=== PATIENT | male | born 1940 | race Two or more races ===

== ENCOUNTER 2019-05-01 11:34 | Emergency (ER) | payer MEDICARE ==
[2019-05-01 11:53] VITALS: RESP 18; TEMP 97.9
[2019-05-01] MEDS ORDERED: KETOROLAC 30 MG/ML 1 ML VIAL IM STA (12:12)
--- NOTE | 2019-05-01 12:20 | ED ---
General Adult HPI - General Chief complaint: Extremity Injury, Upper Stated complaint: Swollen hand Time Seen by Provider: 05/01/19 12:00 Source: patient Mode of arrival: ambulatory Limitations: no limitations - History of Present Illness Initial comments: Dictation was produced using [employer] dictation software. please excuse any gramma tical, word or spelling errors. Chief Complaint: 78-year-old male with no significant past medical history presents with left hand pain after fall. History of Present Illness: 78-year-old male presents with left hand pain after fall. Yesterday patient was walking down an embankment when he encountered some ice causing him to slip fall backwards. Patient fell on outstretched hand with his left hand. He tried to catch his fall. Patient denies any injury to anything except his left hand. He states he has significant pain to the second and third MCP. States it's really painful. He does also note that there is deformity to his fingers which appear slightly rotated. he reports that he injured his hand the past. Denies any numbness to paresthesias to the left upper extremity. The ROS documented in this emergency department record has been reviewed and confirmed by me. Those systems with pertinent positive or negative responses have been documented in the HPI. All other systems are other negative and/or noncontributory. PHYSICAL EXAM: General Impression: Alert and oriented x3, not in acute distress HEENT: Normocephalic atraumatic, extra-ocular movements intact, pupils equal and reactive to light bilaterally, mucous membranes moist. Cardiovascular: Heart regular rate and rhythm, S1&S2 audible, no murmurs, rubs or gallops Chest: Lungs clear to auscultation bilaterally, no rhonchi, no wheeze, no rales Abdomen: Bowel sounds present, abdomen soft, non-tender, non-distended, no organomegaly Musculoskeletal: Pulses present and equal in all extremities, no peripheral edema Left hand: Swelling to the second and third MCP. Pain with manipulation to the fingers. Patient has decreased correspondence transcriber strength secondary to pain of his second and third digit. Motor: no focal deficits noted Neurological: CN II-XII grossly intact, no focal motor or sensory deficits noted Skin: Intact with no visualized rashes Psych: Normal affect and mood ED course: 78 old male presents with left hand injury after fall. On arrival are within acceptable limits. Patient has no other complaints.hand x-ray is unremarkable. Patient placed and a hand splint immobilizing the first and second digit. Patient prescription for analgesia. Advised follow-up with primary care physician for outpatient follow-up of his hand injury. He is told that if symptoms get worse mini to follow-up with orthopedic hand specialist. - Related Data Previous Rx's Medication Instructions Recorded HYDROcodone/APAP 5-325MG [Agency 1 tab PO Q6HR PRN 3 Days #12 tab 05/01/19 5-325] Allergies Allergy/AdvReac Type Severity Reaction Status Date / Time No Known Allergies Allergy Verified 05/01/19 11:53 Review of Systems ROS Statement: Those systems with pertinent positive or pertinent negative responses have been documented in the HPI. ROS Other: All systems not noted in ROS Statement are negative. Past Medical History Past Medical History: GERD/Reflux, Hyperlipidemia, Hypertension History of Any Multi-Drug Resistant Organisms: None Reported Additional Past Surgical History / Comment(s): rt knee, shoulder, divertilvulits Past Psychological History: No Psychological Hx Reported Smoking Status: Never smoker Past Alcohol Use History: Occasional Past Drug Use History: None Reported General Exam Limitations: no limitations Course Vital Signs 05/01/19 11:49 Temperature 97.9 F Pulse Rate 61 Respiratory 18 Rate Blood Pressure 142/85 O2 Sat by Pulse 96 Oximetry Disposition Clinical Impression: Finger sprain Disposition: HOME SELF-CARE Condition: Good Instructions (If sedation given, give patient instructions): Hand Sprain (ED) Prescriptions: HYDROcodone/APAP 5-325MG [Agency 5-325] 1 tab PO Q6HR PRN 3 Days #12 tab PRN Reason: Severe Pain Is patient prescribed a controlled substance at d/c from ED?: No Referrals: Bassam Montoya DO [Primary Care Provider] - 1-2 days Samuel Chen DO [Medical Doctor] - 1-2 days Time of Disposition: 13:55
--- NOTE | 2019-05-01 13:13 | XR ---
EXAMINATION TYPE: XR hand complete LT , 3 VIEWS DATE OF EXAM ORDERED: 05/01/2019 HISTORY: pain, fall. COMPARISON: None. FINDINGS: The bones are osteopenic, likely on the basis of osteoporosis. There is joint space loss a nd remodeling change in the left third MCP joint. There is degenerative change in the first carpal me tacarpal joint. Deformity of distal ulna likely relating to previous trauma. No acute fracture or dis location is seen. IMPRESSION: 1. NO ACUTE OSSEOUS LESION. 2. EVIDENCE OF OLD TRAUMA. 3. DEGENERATIVE CHANGE.
[2019-05-01 14:20] VITALS: BP 138/78; PULSE 64
== END 2019-05-01 14:15 | disposition home or self-care (01) ==
LOC: EC 11:34
DX: S63.611A Unspecified sprain of left index finger, initial encounter (principal); S63.613A Unspecified sprain of left middle finger, initial encounter; W00.0XXA Fall on same level due to ice and snow, initial encounter; Y93.01 Activity, walking, marching and hiking; Y92.008 Other place in unspecified non-institutional (private) residence as the place of occurrence of the external cause
CPT/HCPCS: 73130; 99283; 96372; J1885

== ENCOUNTER 2021-10-10 11:51 | Day surgery (SDC) | payer MEDICARE ==
[2021-10-09 09:57] VITALS: BMI 24.7
[~2021-10-10 11:51] MED LIST: FAMOTIDINE 20 MG/2 ML VIAL IV PRN; HYDROmorphone 0.5 MG/0.5 ML SYRINGE IVP PRN; LACTATED RINGERS 1,000 ML IV SCH; LIDOCAINE 1% (10MG/ML) FOR IV START INTRADERMA PRN; ONDANSETRON 4 MG/2 ML VIAL IVP ONE
[2021-10-10 12:31] LABS: Glucose,Whole Blood 97 mg/dL (75-99)
[2021-10-10] MEDS ORDERED: hydrALAZINE HCL 20 MG/ML 1 ML VIAL IVP ONE (12:33)
[2021-10-10] MEDS ORDERED: fentaNYL (PF) 50 MCG/ML 2 ML AMP ONE (14:17)
[2021-10-10] MEDS ORDERED: MIDAZOLAM 2 MG/2 ML VIAL ONE (14:17)
[2021-10-10] MEDS ORDERED: ePHEDrine 50 MG/ML 1 ML VIAL ONE (14:17)
[2021-10-10] MEDS ORDERED: PHENYLEPHRINE-0.9% NACL SYG 1,000 MCG/10 ML SYRINGE ONE (14:17)
[2021-10-10] MEDS ORDERED: PROPOFOL 10 MG/ML 20 ML VIAL IV ONE (14:17)
[2021-10-10] MEDS ORDERED: LIDOCAINE 1%-EPI 1:100,000 20 ML VIAL SQ ONE ×2 (14:33)
[2021-10-10] MEDS ORDERED: BACITRACIN ZINC 500 UNIT/GM OINT 28.4 GM TUBE TOPICAL ONE (15:27)
--- NOTE | 2021-10-10 15:44 | P.OP ---
Date of Procedure: 10/10/21 Preoperative Diagnosis: Right ear lesion Postoperative Diagnosis: Same Procedure(s) Performed: Excision right ear lesion 2.1 x 1.5 cm Anesthesia: JACA Surgeon: Carter Anderson Estimated Blood Loss (ml): 2 Pathology: other (Right ear lesion) Condition: stable Disposition: PACU Indications for Procedure: This is an 81-year-old white male who has a slowly enlarging right ear lesion Operative Findings: [place] well-circumscribed nodular skin lesion posterior aspect of the right auricle on frozen section had negative margins and was a basal cell carcinoma. Description of Procedure: The patient was brought in the operative suite and placed in a supine position. Patient underwent induction of general anesthesia with laryngeal mask airway intubation without difficulty. The patient was prepped and draped in usual aseptic fashion. 1% lidocaine with [id number] epinephrine was infused subcutaneously and field block fashion around the lesion as well as in the right postauricular area for potential skin graft reconstruction. The lesion was excised from surrounding tissue grossly entirely down to the perichondrium which was left intact. This was sent for frozen section and the frozen section margins were negative. A full-thickness skin graft was harvested from the right postauricular area in elliptical fashion and was defatted. This defect was closed after hemostasis was gained with inverted interrupted 4-0 Vicryl suture and skin was closed with running locking 4 0 Prolene suture. Bacitracin ointment and sterile dressing was placed. The skin graft was then sutured circumferentially with 5-0 Vicryl suture at the defect and a bolster dressing of Adaptic with bacitracin covering cotton ball was tied down to this. Excellent hemostasis noted. Patient was allowed to emerge from anesthesia having tolerated procedure well was extubated in the operating suite and transferred to postop recovery area in satisfactory condition.
[2021-10-10 15:56] VITALS: RESP 16; TEMP 97.2
[2021-10-10 16:50] VITALS: BP 145/82; PULSE 63
--- NOTE | 2021-10-10 19:40 | OP ---
OPERATIVE REPORT ADDENDUM: PROCEDURES PERFORMED: 1. Excision right ear lesion, 2.1 x 1.5 cm. 2. Full-thickness skin graft reconstruction of right ear defect, 2.2 x 2.3 cm. MMODL / IJN: [id number] /
== END 2021-10-10 17:10 | disposition home or self-care (01) ==
LOC: OR 11:51
PROVIDERS: ATTEND Otolaryngology
DX: L98.9 Disorder of the skin and subcutaneous tissue, unspecified (principal)
CPT/HCPCS: 11444; 15260; 88305; 88331; 88332; J2250; J0360; J0690; J2405; J3010; J2370; J2704

== ENCOUNTER 2022-10-09 11:22 | Day surgery (SDC) | payer MEDICARE ==
[2022-10-07 10:51] VITALS: BMI 24.3
[~2022-10-09 11:22] MED LIST changes: -HYDROmorphone 0.5 MG/0.5 ML SYRINGE IVP PRN; -LIDOCAINE 1% (10MG/ML) FOR IV START INTRADERMA PRN; +fentaNYL (PF) 50 MCG/ML 2 ML AMP IV PRN
[2022-10-09 12:18] LABS: Glucose,Whole Blood 85 mg/dL (70-110)
[2022-10-09] MEDS ORDERED: HYDROCORTISONE SUCCINATE 100 MG/2 ML VIAL IVP ONE (12:32)
[2022-10-09] MEDS ORDERED: PROPOFOL 10 MG/ML 20 ML VIAL IV ONE (13:02)
[2022-10-09] MEDS ORDERED: LIDOCAINE 2% INJ 20 MG/ML (2 ML VIAL) ONE (13:02)
[2022-10-09] MEDS ORDERED: fentaNYL (PF) 50 MCG/ML 2 ML AMP ONE (13:02)
[2022-10-09] MEDS ORDERED: LIDOCAINE 2%-EPI 1:100,000 20 ML VIAL SQ ONE ×2 (13:22)
[2022-10-09] MEDS ORDERED: BACITRACIN ZINC 500 UNIT/GM OINT 28.4 GM TUBE TOPICAL ONE (14:28)
[2022-10-09] MEDS ORDERED: LACTATED RINGERS 1,000 ML IV ONE (14:36)
--- NOTE | 2022-10-09 14:45 | P.OP ---
Date of Procedure: 10/09/22 Preoperative Diagnosis: Right upper nasal lesion Postoperative Diagnosis: Same, basal cell carcinoma Procedure(s) Performed: Excision right upper nasal lesion 1.6 cm x 1.5 cm Local flap reconstruction right upper nasal defect with primary defect 1.8 x 1.8 cm and secondary defect of 2.1 x 2.0 cm- modified glabellar flap Anesthesia: YARELI Surgeon: Carter Anderson Estimated Blood Loss (ml): 3 Pathology: other (Right upper nasal lesion) Condition: stable Disposition: PACU Indications for Procedure: 82-year-old white male with a slowly enlarging right upper nasal lesion Operative Findings: Raised pearly skin lesion right upper nasal dorsum near the medial canthus with ulcerative Centerbasal cell carcinoma on frozen section Description of Procedure: Patient brought in the operative suite and placed in a supine position. Patient underwent induction of general anesthesia with laryngeal mask airway intubation without difficulty. Patient was prepped and draped in usual aseptic fashion. 1% lidocaine with [id number] epinephrine was infused subcutaneously and field block fashion. This was left for work for 7 minutes vasoconstrictive effect. The lesion from the right upper nasal dorsum was excised grossly entirely and se nt for frozen section. Initial frozen section had positive margin laterally and superiorly therefore additional lateral and superior margins were sent for permanent section at the recommendation of the pathologist. Hemostasis was gained with electrocautery. Due to the size and location of the defect a local flap was necessary to close this defect. A modified glabellar flap was raised in the same plane as the defect and then rotated and advanced into position. The flap and secondary defect were then closed with inverted interrupted 40 and 5-0 Vicryl suture skin closed with running locking and simple interrupted 5-0 Prolene suture. Bacitracin ointment was placed. Excellent hemostasis and excellent capillary refill of the entire flap. The patient was then allowed to emerge from general anesthesia having tolerated procedure well was extubated in the operating suite and transferred to the postop recovery area in satisfactory condition.
[2022-10-09 14:50] VITALS: TEMP 97.2
[2022-10-09 15:42] VITALS: RESP 18
[2022-10-09 16:03] VITALS: BP 171/96; PULSE 61
== END 2022-10-09 16:13 | disposition home or self-care (01) ==
LOC: OR 11:22
PROVIDERS: ATTEND Otolaryngology
DX: D48.5 Neoplasm of uncertain behavior of skin (principal); J34.89 Other specified disorders of nose and nasal sinuses; I10 Essential (primary) hypertension; Z79.899 Other long term (current) drug therapy; Z98.890 Other specified postprocedural states; Z85.46 Personal history of malignant neoplasm of prostate
CPT/HCPCS: 14061; 88305; 88331; 88332; J1720; J0690; J2405; J3010; J2704; J2001

== ENCOUNTER 2023-07-16 10:20 | Day surgery (SDC) | payer MEDICARE ==
[2023-07-14 08:58] VITALS: BMI 24.8
[~2023-07-16 10:20] MED LIST changes: -FAMOTIDINE 20 MG/2 ML VIAL IV PRN; +HYDROmorphone 0.5 MG/0.5 ML SYRINGE IVP PRN; -LACTATED RINGERS 1,000 ML IV SCH; -ONDANSETRON 4 MG/2 ML VIAL IVP ONE; -fentaNYL (PF) 50 MCG/ML 2 ML AMP IV PRN
[2023-07-16] MEDS: LACTATED RINGERS 1,000 ML IV SCH (10:47)
[2023-07-16] MEDS: FAMOTIDINE 20 MG/2 ML VIAL IV PRN (11:07)
[2023-07-16] MEDS: ONDANSETRON 4 MG/2 ML VIAL ONE (11:20)
[2023-07-16] MEDS: HYDROCORTISONE SUCCINATE 100 MG/2 ML VIAL IVP ONE (11:21)
[2023-07-16 11:23] LABS: Glucose,Whole Blood 95 mg/dL (70-110)
[2023-07-16] MEDS ORDERED: MIDAZOLAM 2 MG/2 ML VIAL ONE (11:34)
[2023-07-16] MEDS ORDERED: PHENYLEPHRINE 10 MG/ML VIAL ONE (11:34)
[2023-07-16] MEDS ORDERED: ePHEDrine 50 MG/ML 1 ML VIAL ONE (11:34)
[2023-07-16] MEDS ORDERED: LIDOCAINE 1% INJ 10MG/ML (20 ML MDV) ONE (11:34)
[2023-07-16] MEDS ORDERED: GLYCOPYRROLATE 0.2 MG/ML 2 ML VIAL ONE (11:34)
[2023-07-16] MEDS ORDERED: PROPOFOL 10 MG/ML 20 ML VIAL IV ONE (11:34)
[2023-07-16] MEDS ORDERED: fentaNYL (PF) 50 MCG/ML 2 ML AMP ONE (11:34)
[2023-07-16 11:35] VITALS: TEMP 96.8
[2023-07-16] MEDS: LIDOCAINE 2%-EPI 1:100,000 20 ML VIAL SQ ONE (11:58)
[2023-07-16] MEDS: BACITRACIN ZINC 500 UNIT/GM OINT 28.4 GM TUBE TOPICAL ONE (12:40)
--- NOTE | 2023-07-16 13:04 | P.OP ---
Date of Procedure: 07/16/23 Preoperative Diagnosis: Right temporal skin lesion Preauricular skin lesion Postoperative Diagnosis: Same Procedure(s) Performed: Excision right temporal skin lesion 2.8 cm x 2.3 cm Local flap reconstruction right temporal defect with primary defect 2.8 x 2.3 cm with secondary defect at 3.5 x 2.8 cm Excision right preauricular skin lesion with layered closure 3.3 cm Anesthesia: GETA Surgeon: Carter Anderson Estimated Blood Loss (ml): 3 Pathology: other (Roland and right preauricular skin lesions) Condition: stable Disposition: PACU Indications for Procedure: This 83-year-old white male with progressively enlarging right mormonism and right preauricular skin lesions Operative Findings: Approximately 2 x 2.5 cm pink raised nodular skin lesion right mormonism and approximately 1.5 x 1 cm right preauricular skin lesion which is erythematous and raised and roughened Description of Procedure: Patient brought in the operative suite and placed a supine was very patient underwent induction of general anesthesia with laryngeal mask airway intubation without difficulty. The patient was prepped and draped in usual aseptic fashion. 1% lidocaine with 1 1000 epinephrine was infused subcutaneous and field block fashion. This was left to work for 7 minutes vasoconstrictive effect. The right preauricular lesion was excised in elliptical fashion down to the subcutaneous fat layer. The edges of the wound were undermined and h emostasis gained with electrocautery and the wound was closed in the subcutaneous layer with inverted interrupted 5-0 Vicryl suture skin closed with running locking 5-0 Prolene suture. Bacitracin ointment sterile dressing were placed. The right temporal lesion was then excised grossly entirely down to the deep subcutaneous layer. The edges of the wound were undermined hemostasis gained with electrocautery. Due to the size and location this required local flap reconstruction. A rhomboid flap was developed with the base posterior and the rotation from inferior at the same level and size as the defect. This was rotated and advanced into position and sutured with the primary and secondary defect closed with inverted interrupted 40 and 5-0 Vicryl suture skin closed with running locking and simple interrupted 5-0 Prolene suture. Bacitracin ointment and sterile dressing was placed. The patient was then allowed to emerge from general anesthesia having tolerated procedure well was extubated in the operating suite and transferred to postop recovery area in satisfactory condition.
[2023-07-16 14:18] VITALS: BP 115/60; PULSE 75; RESP 18
== END 2023-07-16 14:42 | disposition home or self-care (01) ==
LOC: OR 10:20
PROVIDERS: ATTEND Otolaryngology
DX: C44.311 Basal cell carcinoma of skin of nose (principal); I10 Essential (primary) hypertension; E78.5 Hyperlipidemia, unspecified; K21.9 Gastro-esophageal reflux disease without esophagitis; Z79.899 Other long term (current) drug therapy; Z98.890 Other specified postprocedural states
CPT/HCPCS: 21012; 14040; 88305; J2250; J1720; J0690; J2405; J2001; J3010; J3490; J2704; J2371

== ENCOUNTER 2023-10-27 20:21 | Emergency (ER) | payer MEDICARE ==
[2023-10-27 20:37] VITALS: TEMP 98.4
--- NOTE | 2023-10-27 21:12 | ED ---
General Adult HPI - General Chief complaint: GI Bleed Stated complaint: Weakness,Dizziness,Dark Stool Time Seen by Provider: 10/27/23 20:47 Source: patient Limitations: no limitations - History of Present Illness Initial comments: 83-year-old male presented to the ED with complaints of dark tarry stools. Patient diagnosed with a blood clot last month of his leg. Was started on clopidogrel on 10/10/2023. Reports over the past few days has had dark tarry stools. No abdominal pain. Otherwise no changes in bowel movements. No changes in bladder habits. No chest pain or shortness of breath. No fever or chills. Patient does report he has known history of gastric ulcer. No other complaints at this time. - Related Data Home Medications Medication Instructions Recorded Confirmed Tamsulosin [Flomax] 0.4 mg PO HS 10/09/21 07/16/23 predniSONE 5 mg PO QAM 10/09/21 07/16/23 Verapamil HCl [Verapamil ER] 180 mg PO BID 10/10/21 07/16/23 Atorvastatin [Lipitor] 20 mg PO HS 07/14/23 07/16/23 Finasteride [Proscar] 5 mg PO HS 07/14/23 07/16/23 Olmesartan/Hydrochlorothiazide 1 each PO DAILY 07/14/23 07/16/23 [Olmesartan-Hctz 20-12.5 mg Tab] Allergies Allergy/AdvReac Type Severity Reaction Status Date / Time No Known Allergies Allergy Verified 10/27/23 20:37 Review of Systems ROS Statement: Those systems with pertinent positive or pertinent negative responses have been documented in the HPI. ROS Other: All systems not noted in ROS Statement are negative. Past Medical History Past Medical History: Cancer, GERD/Reflux, Hyperlipidemia, Hypertension, Osteoarthritis (OA), Prostate Disorder Additional Past Medical History / Comment(s): skin CA,hx stomach ulcer w/ bleeding 2021-received blood transfusion, prostate CA-received radiation tx approx 15 yrs ago, yesica wrist swelling-takes daily dose of prednisone, diverticulitis-perforated bowel History of Any Multi-Drug Resistant Organisms: None Reported Past Surgical History: Bowel Resection, Hernia Repair, Orthopedic Surgery Additional Past Surgical History / Comment(s): yesica. knee, shoulder, temporary colostomy and reversal, yesica inguinal hernia, skin CA removal Past Anesthesia/Blood Transfusion Reactions: No Reported Reaction Additional Past Anesthesia/Blood Transfusion Reaction / Comment(s): no problems with prior blood transfusion. Stated "had ruptured a vessel when was intubated (was vomiting blood) and had to have blood transfusion with knee surgery approx 11 yrs ago at [facility]"-had general anesthesia with no problems Past Psychological History: No Psychological Hx Reported Smoking Status: Never smoker Past Alcohol Use History: Occasional Past Drug Use History: None Reported - Past Family History Mother Family Medical History: Cancer Additional Family Medical History / Comment(s): breast General Exam Limitations: no limitations General appearance: alert, in no apparent distress Eye exam: Present: normal appearance Neck exam: Present: normal inspection Respiratory exam: Present: normal lung sounds bilaterally Cardiovascular Exam: Present: regular rate GI/Abdominal exam: Present: soft, normal bowel sounds. Absent: distended, tenderness, guarding, rebound, rigid Rectal exam: Present: other (No gross blood.) Neurological exam: Present: alert, oriented X3 Skin exam: Present: warm, dry Course Vital Signs 10/27/23 10/27/23 10/27/23 20:33 21:43 23:06 Temperature 98.4 F Pulse Rate 72 67 73 Respiratory 22 18 19 Rate Blood Pressure 109/63 115/68 100/67 O2 Sat by Pulse 96 96 98 Oximetry Medical Decision Making - Medical Decision Making Was pt. sent in by a medical professional or institution ([facility], [facility], urgent care, hospital, or group home...) When possible be specific @ -No Did you speak to anyone other than the patient for history (EMS, parent, family, police, friend...)? What history was obtained from this source @ -No Did you review nursing and triage notes (agree or disagree)? Why? @ -I reviewed and agree with nursing and triage notes Were old charts reviewed (outside hosp., previous admission, EMS record, old EKG, old radiological studies, urgent care reports/EKG's, group home records)? Report findings @ -No old charts were reviewed Differential Diagnosis (chest pain, altered mental status, abdominal pain women, abdominal pain men, vaginal bleeding, weakness, fever, dyspnea, syncope, headache, dizziness, GI bleed, back pain, seizure, CVA, palpatations, mental health, musculoskeletal)? @ -Differential GI Bleed: Esophageal varices, aortoenteric fistula, Marycarmen-Lentz, gastritis, peptic ulcer disease, diverticulosis, inflammatory bowel disease, hemorrhoids, fissure, colitis, malignancy, Meckels diverticulum, this is not meant to be an all- inclusive list. EKG interpreted by me (3pts min.). @ -None X-rays interpreted by me (1pt min.). @ -None done CT interpreted by me (1pt min.). @ -None done U/S interpreted by me (1pt. min.). @ -None done What testing was considered but not performed or refused? (CT, X-rays, U/S, labs)? Why? @ -None What meds were considered but not given or refused? Why? @ -None Did you discuss the management of the patient with other professionals (professionals i.e. , PA, TICKET MAKER, lab, RT, psych nurse, social professionals, slab stripper, teacher, assignment officer, case work aide)? Give summary @ -Case discussed with Dr. Lloyd, who at this time advises transfer Case dicsussed with Dr. Biswas, who accepts transfer Was smoking cessation discussed for >3mins.? @ -No Was critical care preformed (if so, how long)? @ -No Were there social determinants of health that impacted care today? How? (Homelessness, low income, unemployed, alcoholism, drug addiction, transportation, low edu. Level, literacy, decrease access to med. care, residential, rehab)? @ -No Was there de-escalation of care discussed even if they declined (Discuss DNR or withdrawal of care, Hospice)? DNR status @ -No What co-morbidities impacted this encounter? (DM, HTN, Smoking, COPD, CAD, Can cer, CVA, ARF, Chemo, Hep., AIDS, mental health diagnosis, sleep apnea, morbid obesity)? @ -None Was patient admitted / discharged? Hospital course, mention meds given and route, prescriptions, significant lab abnormalities, going to OR and other pertinent info. @ -Transfer 83-year-old male with known history of gastric ulcer recently diagnosed with a DVT started on Coumadin at that in the last month presenting to the ED with complaints of melena for the past few days. Laboratory studies reviewed. CBC shows a hemoglobin at 8.4. There is no prior for comparison. Chemistry panel significant for BUN at 79, creatinine 1.01. Occult blood positive. He is currently hemodynamically stable. Patient will be transferred to [facility] for further evaluation. Undiagnosed new problem with uncertain prognosis? @ -No Drug Therapy requiring intensive monitoring for toxicity (Heparin, Nitro, Insulin, Cardizem)? @ -No Were any procedures done? @ -No Diagnosis/symptom? @ -GI bleed, anemia Acute, or Chronic, or Acute on Chronic? @ -Acute Uncomplicated (without systemic symptoms) or Complicated (systemic symptoms)? @ -Complicated Side effects of treatment? @ -No Exacerbation, Progression, or Severe Exacerbation? @ -No Poses a threat to life or bodily function? How? (Chest pain, USA, VT, pneumonia, PE, COPD, DKA, ARF, appy, cholecystitis, CVA, Diverticulitis, Homicidal, Suicidal, threat to staff... and all critical care pts) @ -Unlikely at this time - Lab Data Result diagrams: 10/27/23 21:24 10/27/23 21:24 Lab Results 10/27/23 10/27/23 10/27/23 Range/Units 21:24 21:24 21:24 WBC 7.1 (3.8-10.6) k/uL RBC 3.23 L (4.30-5.90) m/uL Hgb 8.4 L (13.0-17.5) gm/dL Hct 27.0 L (39.0-53.0) % MCV 83.7 (80.0-100.0) fL MCH 26.0 (25.0-35.0) pg MCHC 31.1 (31.0-37.0) g/dL RDW 17.6 H (11.5-15.5) % Plt Count 330 (150-450) k/uL MPV 9.0 Neutrophils % 62 % Lymphocytes % 26 % Monocytes % 7 % Eosinophils % 0 % Basophils % 1 % Neutrophils # 4.4 (1.3-7.7) k/uL Lymphocytes # 1.9 (1.0-4.8) k/uL Monocytes # 0.5 (0-1.0) k/uL Eosinophils # 0.0 (0-0.7) k/uL Basophils # 0.0 (0-0.2) k/uL Anisocytosis Slight PT 12.2 (10.0-12.5) sec INR 1.1 (<1.2) APTT 24.6 (22.0-30.0) sec Sodium (137-145) mmol/L Potassium (3.5-5.1) mmol/L Chloride (98-107) mmol/L Carbon Dioxide (22-30) mmol/L Anion Gap mmol/L BUN (9-20) mg/dL Creatinine (0.66-1.25) mg/dL Est GFR (CKD-EPI)AfAm (>60 ml/min/1.73 sqM) Est GFR (CKD-EPI)NonAf (>60 ml/min/1.73 sqM) Glucose (74-99) mg/dL Plasma Lactic Acid Tomas (0.7-2.0) mmol/L Calcium (8.4-10.2) mg/dL Total Bilirubin (0.2-1.3) mg/dL AST (17-59) U/L ALT (4-49) U/L Alkaline Phosphatase (38-126) U/L Total Protein (6.3-8.2) g/dL Albumin (3.5-5.0) g/dL Stool Occult Blood Positive (Negative) 10/27/23 10/27/23 Range/Units 21:24 21:24 WBC (3.8-10.6) k/uL RBC (4.30-5.90) m/uL Hgb (13.0-17.5) gm/dL Hct (39.0-53.0) % MCV (80.0-100.0) fL MCH (25.0-35.0) pg MCHC (31.0-37.0) g/dL RDW (11.5-15.5) % Plt Count (150-450) k/uL MPV Neutrophils % % Lymphocytes % % Monocytes % % Eosinophils % % Basophils % % Neutrophils # (1.3-7.7) k/uL Lymphocytes # (1.0-4.8) k/uL Monocytes # (0-1.0) k/uL Eosinophils # (0-0.7) k/uL Basophils # (0-0.2) k/uL Anisocytosis PT (10.0-12.5) sec INR (<1.2) APTT (22.0-30.0) sec Sodium 135 L (137-145) mmol/L Potassium 3.8 (3.5-5.1) mmol/L Chloride 105 (98-107) mmol/L Carbon Dioxide 23 (22-30) mmol/L Anion Gap 7 mmol/L BUN 79 H (9-20) mg/dL Creatinine 1.01 (0.66-1.25) mg/dL Est GFR (CKD-EPI)AfAm 78 (>60 ml/min/1.73 sqM) Est GFR (CKD-EPI)NonAf 68 (>60 ml/min/1.73 sqM) Glucose 104 H (74-99) mg/dL Plasma Lactic Acid Tomas 1.2 (0.7-2.0) mmol/L Calcium 8.2 L (8.4-10.2) mg/dL Total Bilirubin 0.7 (0.2-1.3) mg/dL AST 12 L (17-59) U/L ALT 13 (4-49) U/L Alkaline Phosphatase 75 (38-126) U/L Total Protein 5.7 L (6.3-8.2) g/dL Albumin 3.4 L (3.5-5.0) g/dL Stool Occult Blood (Negative) Disposition Clinical Impression: Anemia, GI bleed Disposition: OTHER INSTITUTION NOT DEFINED Condition: Fair Referrals: Bassam Montoya DO [Primary Care Provider] - 1-2 days Time of Disposition: 23:15 - Out of Hospital Transfer - Req. Specs Out of Hospital Transfer - Requested Specifics: Other Emergency Center ([facility])
[2023-10-27] MEDS: SODIUM CHLORIDE 0.9% 1,000 ML IV STA (21:46)
[2023-10-27 22:06] LABS: Anisocytosis Slight; Basophils % (A) 1 %; Eosinophils % (A) 0 %; HGB 8.4 gm/dL (13.0-17.5); Lymphocytes # (A) 1.9 k/uL (1.0-4.8); Lymphocytes % (A) 26 %; MCHC 31.1 g/dL (31.0-37.0); MCV 83.7 fL (80.0-100.0); Monocytes # (A) 0.5 k/uL (0-1.0); Monocytes % (A) 7 %; Neutrophils # (A) 4.4 k/uL (1.3-7.7); Neutrophils % (A) 62 %; Platelet Count 330 k/uL (150-450); RBC 3.23 m/uL (4.30-5.90); RDW 17.6 % (11.5-15.5); WBC 7.1 k/uL (3.8-10.6)
[2023-10-27 22:19] LABS: ALT 13 U/L (4-49); AST 12 U/L (17-59); African American GFR (CKD) 78 (>60 ml/min/1.73 sqM); Albumin 3.4 g/dL (3.5-5.0); Alkaline Phosphatase 75 U/L (38-126); Anion Gap 7 mmol/L; Blood Urea Nitrogen 79 mg/dL (9-20); Calcium 8.2 mg/dL (8.4-10.2); Carbon Dioxide 23 mmol/L (22-30); Chloride 105 mmol/L (98-107); Glucose 104 mg/dL (74-99); Non-African American GFR(CKD) 68 (>60 ml/min/1.73 sqM); Potassium 3.8 mmol/L (3.5-5.1); Sodium 135 mmol/L (137-145); Total Bilirubin 0.7 mg/dL (0.2-1.3); Total Protein 5.7 g/dL (6.3-8.2)
[2023-10-27 22:21] LABS: INR 1.1 (<1.2); Partial Thromboplastin Time 24.6 sec (22.0-30.0); Prothrombin Time 12.2 sec (10.0-12.5)
[2023-10-28 00:41] VITALS: BP 100/51; PULSE 75; RESP 18
== END 2023-10-28 00:42 | disposition other institution (70) ==
LOC: EC 20:21
DX: D64.9 Anemia, unspecified (principal); K92.2 Gastrointestinal hemorrhage, unspecified
CPT/HCPCS: 36415; 80053; 82272; 83605; 85025; 85610; 85730; 96360; 99285

== ENCOUNTER 2023-12-15 13:15 | Inpatient (IN) | payer MEDICARE ==
--- NOTE | 2023-12-15 13:46 | ED ---
General Adult HPI - General Source: patient, family, RN notes reviewed Mode of arrival: ambulatory Limitations: no limitations <Renetta Cazares - Last Filed: 12/15/23 13:44> <Angie Acevedo - Last Filed: 12/15/23 20:02> <Lexa Chau - Last Filed: 12/15/23 20:22> - General Chief complaint: Chest Pain Stated complaint: L Shoulder/neck pain Time Seen by Provider: 12/15/23 13:44 - History of Present Illness Initial comments: Quick Note: This is an 83 year old male who presents to the emergency department for pain in his neck and left shoulder. States that last night when he went to bed he had stiffness in his neck and left shoulder. Pain was worse with movement. Denies any injuries. Pain has persisted into today. He is now developing pain over the left rib cage. Additionally, family states that over t he last couple of weeks he has been very weak and fatigued. (Renetta Cazares) 83-year-old male presenting to the ED for left neck pain since last night. Patient states when he was going to bed last night he was having stiffness in his neck and left shoulder that is worse with movement. He states he had trouble sleeping last night due to the pain. Denies trauma or injury. Family is present upon evaluation in states they are concerned because over the past couple weeks he has been very fatigued and weak. (Angie Acevedo) - Related Data Home Medications Medication Instructions Recorded Confirmed Tamsulosin [Flomax] 0.4 mg PO BID 10/09/21 12/15/23 Atorvastatin [Lipitor] 20 mg PO DAILY 07/14/23 12/15/23 Finasteride [Proscar] 5 mg PO DAILY 07/14/23 12/15/23 Olmesartan/Hydrochlorothiazide 1 tab PO DAILY 07/14/23 12/15/23 [Olmesartan-Hctz 20-12.5 mg Tab] Ascorbic Acid [Vitamin C] 500 mg PO HS 12/15/23 12/15/23 Ferrous Sulfate [Feosol] 325 mg PO HS 12/15/23 12/15/23 Omeprazole 20 mg PO DAILY 12/15/23 12/15/23 Allergies Allergy/AdvReac Type Severity Reaction Status Date / Time No Known Allergies Allergy Verified 12/15/23 14:38 Review of Systems ROS Other: All systems not noted in ROS Statement are negative. <Renetta Cazares - Last Filed: 12/15/23 13:44> ROS Other: All systems not noted in ROS Statement are negative. <AcevedoAngie - Last Filed: 12/15/23 20:02> ROS Other: All systems not noted in ROS Statement are negative. <PipertriciaLexa hernandez - Last Filed: 12/15/23 20:22> ROS Statement: Those systems with pertinent positive or pertinent negative responses have been documented in the HPI. Past Medical History Past Medical History: Cancer, GERD/Reflux, Hyperlipidemia, Hypertension, Osteoarthritis (OA), Prostate Disorder Additional Past Medical History / Comment(s): skin CA,hx stomach ulcer w/ bleeding 2021-received blood transfusion, prostate CA-received radiation tx approx 15 yrs ago, yesica wrist swelling-takes daily dose of prednisone, diverticulitis-perforated bowel History of Any Multi-Drug Resistant Organisms: None Reported Past Surgical History: Bowel Resection, Hernia Repair, Orthopedic Surgery Additional Past Surgical History / Comment(s): yesica. knee, shoulder, temporary colostomy and reversal, yesica inguinal hernia, skin CA removal Past Anesthesia/Blood Transfusion Reactions: No Reported Reaction Additional Past Anesthesia/Blood Transfusion Reaction / Comment(s): no problems with prior blood transfusion. Stated "had ruptured a vessel when was intubated (was vomiting blood) and had to have blood transfusion with knee surgery approx 11 yrs ago at [facility]"-had general anesthesia with no problems Past Psychological History: No Psychological Hx Reported Smoking Status: Never smoker Past Alcohol Use History: Occasional Past Drug Use History: None Reported - Past Family History Mother Family Medical History: Cancer Additional Family Medical History / Comment(s): breast <Renetta Cazares - Last Filed: 12/15/23 13:44> General Exam Limitations: no limitations <Renetta Cazares - Last Filed: 12/15/23 13:44> General appearance: alert, in no apparent distress Head exam: Present: atraumatic, normocephalic, normal inspection Eye exam: Present: normal appearance, PERRL, EOMI. Absent: scleral icterus, conjunctival injection, periorbital swelling ENT exam: Present: normal exam, mucous membranes moist Neck exam: Present: normal inspection. Absent: tenderness, meningismus, lymphadenopathy Respiratory exam: Present: normal lung sounds bilaterally. Absent: respiratory distress, wheezes, rales, rhonchi, stridor Cardiovascular Exam: Present: regular rate, normal rhythm, normal heart sounds. Absent: systolic murmur, diastolic murmur, rubs, gallop, clicks GI/Abdominal exam: Present: soft, normal bowel sounds. Absent: distended, tenderness, guarding, rebound, rigid Extremities exam: Present: normal inspection, full ROM, normal capillary refill. Absent: tenderness, pedal edema, joint swelling, calf tenderness Neurological exam: Present: alert, oriented X3, CN II-XII intact Psychiatric exam: Present: normal affect, normal mood Skin exam: Present: warm, dry, intact, normal color. Absent: rash <Angie Acevedo - Last Filed: 12/15/23 20:02> - General Exam Comments Initial Comments: Visual Physical Exam Vital signs reviewed General: Well-appearing, nontoxic, no acute distress. Head: Normocephalic, atraumatic Eyes: PERRLA, EOMI ENT: Airway patent Chest: Nonlabored breathing Skin: No visual rash, normal skin tone Neuro: Alert and oriented 3 Musculoskeletal: No gross abnormalities (VogleyMark AnthonyRenetta) Course <Lexa Chau - Last Filed: 12/15/23 20:22> Vital Signs 12/15/23 12/15/23 12/15/23 13:31 14:35 15:49 Temperature 98.6 F 100.1 F H Pulse Rate 82 96 103 H Respiratory 18 16 16 Rate Blood Pressure 142/92 138/98 146/97 O2 Sat by Pulse 94 L 94 L 94 L Oximetry 12/15/23 12/15/23 18:09 19:39 Temperature 99.0 F Pulse Rate 96 Respiratory 16 Rate Blood Pressure 100/69 O2 Sat by Pulse 93 L Oximetry - Reevaluation(s) Reevaluation #1: 12/15/23 20:21 Case, results and ED management were discussed with Dr. Farley. He accepts hospital admission. He has no further recommendations at this time. (Lexa Chau) EKG Findings - EKG Results: EKG: interpreted by ERMD (EKG reveals normal sinus rhythm with widened QRS complexes. Ventricular rate 96 bpm, NH interval 193, QRS duration 114, QT/QTc 372/426) <Angie Acevedo - Last Filed: 12/15/23 20:02> Medical Decision Making <Renetta Cazares - Last Filed: 12/15/23 13:44> - Lab Data Result diagrams: 12/15/23 14:20 12/15/23 14:20 <Angie Acevedo - Last Filed: 12/15/23 20:02> - Lab Data Result diagrams: 12/15/23 14:20 12/15/23 14:20 <Lexa Chau - Last Filed: 12/15/23 20:22> - Medical Decision Making I performed the QuickNote portion of this chart. Signed Renetta Cazares PA-C. (Renetta Cazares) Was pt. sent in by a medical professional or institution ([facility], ENGLISH DIVISION CHAIR, urgent care, hospital, or intermediate...) When possible be specific @ -No Did you speak to anyone other than the patient for history (EMS, parent, family, police, friend...)? What history was obtained from this source @ -Patient's family members supplemented history Did you review nursing and triage notes (agree or disagree)? Why? @ -I reviewed and agree with nursing and triage notes Were old charts reviewed (outside hosp., previous admission, EMS record, old EKG, old radiological studies, urgent care reports/EKG's, intermediate records)? Report findings @ -No old charts were reviewed Differential Diagnosis (chest pain, altered mental status, abdominal pain women, abdominal pain men, vaginal bleeding, weakness, fever, dyspnea, syncope, headache, dizziness, GI bleed, back pain, seizure, CVA, palpatations, mental health, musculoskeletal)? @ -Differential Fever: Pneumonia, viral URI, endocarditis, myocarditis, pericarditis, otitis, sinusitis, peritonsillar Abscess, retropharyngeal Abscess, epiglottitis, peritonitis, appendicitis, Alondra cystitis, diverticulitis, hepatitis, colitis, UTI, PID, TOA, pyelonephritis, prostatitis, epididymitis, meningitis, encephalitis, pulmonary embolism, CVA, thyroid storm, pancreatitis, adrenal crisis, cavernous sinus thrombosis, this is not meant to be an all-inclusive list. EKG interpreted by me (3pts min.). @ -As above X-rays interpreted by me (1pt min.). @ -Chest x-ray reveals small bilateral pleural effusions and mild pulmonary congestion. C-spine x-ray reveals no acute fracture or dislocation, there is moderate degenerative disc disease. Left shoulder x-ray revealed no acute process, there is mild osteoarthritis, and high riding humerus likely rotator cuff injury. CT interpreted by me (1pt min.). @ -None done U/S interpreted by me (1pt. min.). @ -None done What testing was considered but not performed or refused? (CT, X-rays, U/S, labs)? Why? @ -None What meds were considered but not given or refused? Why? @ -None Did you discuss the management of the patient with other professionals (professionals i.e. , PA, ENGLISH DIVISION CHAIR, lab, RT, psych nurse, social welfare clerk, panel wirer, teacher, commanding officer garage, caseworker protective services)? Give summary @ -No Was smoking cessation discussed for >3mins.? @ -No Was critical care preformed (if so, how long)? @ -No Were there social determinants of health that impacted care today? How? (Homelessness, low income, unemployed, alcoholism, drug addiction, transportation, low edu. Level, literacy, decrease access to med. care, detention, rehab)? @ -No Was there de-escalation of care discussed even if they declined (Discuss DNR or withdrawal of care, Hospice)? DNR status @ -No What co-morbidities impacted this encounter? (DM, HTN, Smoking, COPD, CAD, Cancer, CVA, ARF, Chemo, Hep., AIDS, mental health diagnosis, sleep apnea, morbid obesity)? @ -none Was patient admitted / discharged? Hospital course, mention meds given and route, prescriptions, significant lab abnormalities, going to OR and other pertinent info. @ -Patient was admitted. Patient was seen and evaluated for left-sided neck stiffness as well as fatigue and cough for a couple of weeks. Temperature is 100.1, heart rate is 96, satting 94 on room air. Blood pressure is 100/69. Physical examination is unremarkable. Lab work including CBC, CMP, troponin, BNP, lactic is remarkable for troponin of 0.021, BNP 880. Lactic acid is negative. Urine is unremarkable. Flu, COVID, RSV is negative. Chest x-ray reveals small bilateral pleural effusions and mild pulmonary congestion. C- spine and left shoulder x-ray revealed no acute process. Blood cultures were taken and patient was started on IV Rocephin and azithromycin. Patient was admitted to [facility] for likely pneumonia. Case was discussed with my ED attending Dr. Chau. Undiagnosed new problem with uncertain prognosis? @ -No Drug Therapy requiring intensive monitoring for toxicity (Heparin, Nitro, Insulin, Cardizem)? @ -No Were any procedures done? @ -No Diagnosis/symptom? @ -Pneumonia Acute, or Chronic, or Acute on Chronic? @ -Acute Uncomplicated (without systemic symptoms) or Complicated (systemic symptoms)? @ -Complicated Side effects of treatment? @ -No Exacerbation, Progression, or Severe Exacerbation? @ -No Poses a threat to life or bodily function? How? (Chest pain, [place], [place], pneumonia, PE, COPD, DKA, ARF, appy, cholecystitis, CVA, Diverticulitis, Homicidal, Suicidal, threat to staff... and all critical care pts) @ -Yes (Angie Acevedo) - Lab Data Lab Results 12/15/23 12/15/23 12/15/23 Range/Units 14:20 14:20 14:20 WBC 10.5 (3.8-10.6) k/uL RBC 4.26 L (4.30-5.90) m/uL Hgb 11.6 L D (13.0-17.5) gm/dL Hct 35.3 L (39.0-53.0) % MCV 82.9 (80.0-100.0) fL MCH 27.3 (25.0-35.0) pg MCHC 32.9 (31.0-37.0) g/dL RDW 17.3 H (11.5-15.5) % Plt Count 457 H (150-450) k/uL MPV 8.2 Neutrophils % 59 % Lymphocytes % 21 % Monocytes % 17 % Eosinophils % 0 % Basophils % 0 % Neutrophils # 6.1 (1.3-7.7) k/uL Lymphocytes # 2.2 (1.0-4.8) k/uL Monocytes # 1.7 H (0-1.0) k/uL Eosinophils # 0.0 (0-0.7) k/uL Basophils # 0.0 (0-0.2) k/uL Hypochromasia Slight Anisocytosis Slight PT 12.0 (10.0-12.5) sec INR 1.1 (<1.2) APTT 29.1 (22.0-30.0) sec Sodium 134 L (137-145) mmol/L Potassium 3.7 (3.5-5.1) mmol/L Chloride 99 (98-107) mmol/L Carbon Dioxide 27 (22-30) mmol/L Anion Gap 8 mmol/L BUN 12 (9-20) mg/dL Creatinine 0.77 (0.66-1.25) mg/dL Est GFR (CKD-EPI)AfAm >90 (>60 ml/min/1.73 sqM) Est GFR (CKD-EPI)NonAf 83 (>60 ml/min/1.73 sqM) Glucose 110 H (74-99) mg/dL Plasma Lactic Acid Tomas (0.7-2.0) mmol/L Calcium 8.8 (8.4-10.2) mg/dL Magnesium 1.7 (1.6-2.3) mg/dL Total Bilirubin 0.9 (0.2-1.3) mg/dL AST 21 (17-59) U/L ALT 22 (4-49) U/L Alkaline Phosphatase 120 (38-126) U/L Troponin I (0.000-0.034) ng/mL NT-Pro-B Natriuret Pep 880 pg/mL Total Protein 6.4 (6.3-8.2) g/dL Albumin 3.6 (3.5-5.0) g/dL Lipase 123 (23-300) U/L Urine Color Urine Appearance (Clear) Urine pH (5.0-8.0) Ur Specific [place] (1.001-1.035) Urine Protein (Negative) Urine Glucose (UA) (Negative) Urine Ketones (Negative) Urine Blood (Negative) Urine Nitrite (Negative) Urine Bilirubin (Negative) Urine Urobilinogen (<2.0) mg/dL Ur Leukocyte Esterase (Negative) Influenza Type A (PCR) (Not Detectd) Influenza Type B (PCR) (Not Detectd) RSV (PCR) (Not Detectd) SARS-CoV-2 (PCR) (Not Detectd) 12/15/23 12/15/23 12/15/23 Range/Units 14:20 18:21 18:21 WBC (3.8-10.6) k/uL RBC (4.30-5.90) m/uL Hgb (13.0-17.5) gm/dL Hct (39.0-53.0) % MCV (80.0-100.0) fL MCH (25.0-35.0) pg MCHC (31.0-37.0) g/dL RDW (11.5-15.5) % Plt Count (150-450) k/uL MPV Neutrophils % % Lymphocytes % % Monocytes % % Eosinophils % % Basophils % % Neutrophils # (1.3-7.7) k/uL Lymphocytes # (1.0-4.8) k/uL Monocytes # (0-1.0) k/uL Eosinophils # (0-0.7) k/uL Basophils # (0-0.2) k/uL Hypochromasia Anisocytosis PT (10.0-12.5) sec INR (<1.2) APTT (22.0-30.0) sec Sodium (137-145) mmol/L Potassium (3.5-5.1) mmol/L Chloride (98-107) mmol/L Carbon Dioxide (22-30) mmol/L Anion Gap mmol/L BUN (9-20) mg/dL Creatinine (0.66-1.25) mg/dL Est GFR (CKD-EPI)AfAm (>60 ml/min/1.73 sqM) Est GFR (CKD-EPI)NonAf (>60 ml/min/1.73 sqM) Glucose (74-99) mg/dL Plasma Lactic Acid Tomas 0.9 (0.7-2.0) mmol/L Calcium (8.4-10.2) mg/dL Magnesium (1.6-2.3) mg/dL Total Bilirubin (0.2-1.3) mg/dL AST (17-59) U/L ALT (4-49) U/L Alkaline Phosphatase (38-126) U/L Troponin I 0.021 (0.000-0.034) ng/mL NT-Pro-B Natriuret Pep pg/mL Total Protein (6.3-8.2) g/dL Albumin (3.5-5.0) g/dL Lipase (23-300) U/L Urine Color Urine Appearance (Clear) Urine pH (5.0-8.0) Ur Specific [place] (1.001-1.035) Urine Protein (Negative) Urine Glucose (UA) (Negative) Urine Ketones (Negative) Urine Blood (Negative) Urine Nitrite (Negative) Urine Bilirubin (Negative) Urine Urobilinogen (<2.0) mg/dL Ur Leukocyte Esterase (Negative) Influenza Type A (PCR) Not Detected (Not Detectd) Influenza Type B (PCR) Not Detected (Not Detectd) RSV (PCR) Not Detected (Not Detectd) SARS-CoV-2 (PCR) Not Detected (Not Detectd) 12/15/23 Range/Units 18:21 WBC (3.8-10.6) k/uL RBC (4.30-5.90) m/uL Hgb (13.0-17.5) gm/dL Hct (39.0-53.0) % MCV (80.0-100.0) fL MCH (25.0-35.0) pg MCHC (31.0-37.0) g/dL RDW (11.5-15.5) % Plt Count (150-450) k/uL MPV Neutrophils % % Lymphocytes % % Monocytes % % Eosinophils % % Basophils % % Neutrophils # (1.3-7.7) k/uL Lymphocytes # (1.0-4.8) k/uL Monocytes # (0-1.0) k/uL Eosinophils # (0-0.7) k/uL Basophils # (0-0.2) k/uL Hypochromasia Anisocytosis PT (10.0-12.5) sec INR (<1.2) APTT (22.0-30.0) sec Sodium (137-145) mmol/L Potassium (3.5-5.1) mmol/L Chloride (98-107) mmol/L Carbon Dioxide (22-30) mmol/L Anion Gap mmol/L BUN (9-20) mg/dL Creatinine (0.66-1.25) mg/dL Est GFR (CKD-EPI)AfAm (>60 ml/min/1.73 sqM) Est GFR (CKD-EPI)NonAf (>60 ml/min/1.73 sqM) Glucose (74-99) mg/dL Plasma Lactic Acid Tomas (0.7-2.0) mmol/L Calcium (8.4-10.2) mg/dL Magnesium (1.6-2.3) mg/dL Total Bilirubin (0.2-1.3) mg/dL AST (17-59) U/L ALT (4-49) U/L Alkaline Phosphatase (38-126) U/L Troponin I (0.000-0.034) ng/mL NT-Pro-B Natriuret Pep pg/mL Total Protein (6.3-8.2) g/dL Albumin (3.5-5.0) g/dL Lipase (23-300) U/L Urine Color Colorless Urine Appearance Clear (Clear) Urine pH 7.0 (5.0-8.0) Ur Specific [place] 1.010 (1.001-1.035) Urine Protein Negative (Negative) Urine Glucose (UA) Negative (Negative) Urine Ketones Negative (Negative) Urine Blood Negative (Negative) Urine Nitrite Negative (Negative) Urine Bilirubin Negative (Negative) Urine Urobilinogen <2.0 (<2.0) mg/dL Ur Leukocyte Esterase Negative (Negative) Influenza Type A (PCR) (Not Detectd) Influenza Type B (PCR) (Not Detectd) RSV (PCR) (Not Detectd) SARS-CoV-2 (PCR) (Not Detectd) Disposition <Renetta Cazares - Last Filed: 12/15/23 13:44> Time of Disposition: 19:56 <Angie Acevedo - Last Filed: 12/15/23 20:02> Is patient prescribed a controlled substance at d/c from ED?: No Time of Disposition: 20:22 <Lexa Chau - Last Filed: 12/15/23 20:22> Clinical Impression: Pneumonia Disposition: ADMITTED IP TO THIS HOSP Condition: Stable Referrals: Zina Call DO [Primary Care Provider] - 1-2 days
[2023-12-15 14:37] LABS: Anisocytosis Slight; Basophils % (A) 0 %; Eosinophils % (A) 0 %; HCT 35.3 % (39.0-53.0); Hypochromasia Slight; Lymphocytes # (A) 2.2 k/uL (1.0-4.8); Lymphocytes % (A) 21 %; MCH 27.3 pg (25.0-35.0); MCHC 32.9 g/dL (31.0-37.0); MCV 82.9 fL (80.0-100.0); Mean Platelet Volume 8.2; Monocytes # (A) 1.7 k/uL (0-1.0); Monocytes % (A) 17 %; Neutrophils # (A) 6.1 k/uL (1.3-7.7); Neutrophils % (A) 59 %; Platelet Count 457 k/uL (150-450); RBC 4.26 m/uL (4.30-5.90); RDW 17.3 % (11.5-15.5); WBC 10.5 k/uL (3.8-10.6)
[2023-12-15 14:40] LABS: INR 1.1 (<1.2); Partial Thromboplastin Time 29.1 sec (22.0-30.0)
[2023-12-15 14:48] LABS: HGB 11.6 gm/dL (13.0-17.5)
--- NOTE | 2023-12-15 15:36 | XR ---
EXAMINATION TYPE: XR chest 2V DATE OF EXAM: 12/15/2023 COMPARISON: NONE HISTORY: Chest pain TECHNIQUE: Frontal and lateral views of the chest are obtained. FINDINGS: There are small bilateral pleural effusions, mild pulmonary vascular congestion and interstitial margot a. The heart size is prominent. There is no pneumothorax. No airspace consolidation. There are chronic rotator cuff tears left greater than right. IMPRESSION: Findings most consistent with [id number] CHF
--- NOTE | 2023-12-15 15:37 | XR ---
EXAMINATION TYPE: XR shoulder complete LT DATE OF EXAM: 12/15/2023 2:56 PM CLINICAL INDICATION:Male, 83 years old with history of Pain; [facility] COMPARISON: None TECHNIQUE: XR shoulder complete LT; examined in AP, internally rotated and scapular Y projections. FINDINGS: No evidence of acute osseous pathology, joint dislocation, or soft tissue swelling. The remaining po rtions of the visualized chest are unremarkable. Degeneration changes of the acromion, distal clavic le with osteophyte formation. There is osteophyte formation of the glenoid and humeral head. There is joint space narrowing of glenohumeral joint. The humeral head is high riding with acetabularization of the acromion. IMPRESSION: 1. No acute osseous pathology. 2. Moderate shoulder osteoarthrosis. 3. High riding humerus towards the acromion suspicious for underlying rotator cuff tear. Correlate th MRI.
--- NOTE | 2023-12-15 15:38 | XR ---
EXAMINATION TYPE: XR cervical spine comp DATE OF EXAM: 12/15/2023 2:56 PM CLINICAL INDICATION:Male, 83 years old with history of Pain; COMPARISON: None TECHNIQUE: The cervical spine was imaged in frontal, lateral, odontoid and bilateral oblique. FINDINGS: The osseous structures show grade 2 anterolisthesis of C5 and C6 Alignment without evidence of an acu te fracture. There are osteophytes noted throughout the cervical spine on the anterior and lateral as pects of the vertebral bodies. The intervertebral disk spaces are narrowed at multiple levels. Pedicl es are intact. Soft tissues are within normal limits. The odontoid appears intact. IMPRESSION: 1. No fracture or dislocation. 2. Moderate degenerative disc disease changes of the cervical spine. 3. 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
[2023-12-15] MEDS: MORPHINE SULFATE 2 MG/ML SYRINGE IVP ONE (15:39)
[2023-12-15] MEDS: ONDANSETRON 4 MG/2 ML VIAL IVP STA (15:57)
[2023-12-15 16:58] LABS: ALT 22 U/L (4-49); AST 21 U/L (17-59); African American GFR (CKD) >90 (>60 ml/min/1.73 sqM); Albumin 3.6 g/dL (3.5-5.0); Alkaline Phosphatase 120 U/L (38-126); Anion Gap 8 mmol/L; Blood Urea Nitrogen 12 mg/dL (9-20); Calcium 8.8 mg/dL (8.4-10.2); Carbon Dioxide 27 mmol/L (22-30); Chloride 99 mmol/L (98-107); Glucose 110 mg/dL (74-99); Lipase 123 U/L (23-300); Magnesium 1.7 mg/dL (1.6-2.3); Non-African American GFR(CKD) 83 (>60 ml/min/1.73 sqM); Potassium 3.7 mmol/L (3.5-5.1); Sodium 134 mmol/L (137-145); Total Bilirubin 0.9 mg/dL (0.2-1.3); Total Protein 6.4 g/dL (6.3-8.2)
[2023-12-15 17:03] LABS: NT-Pro-B-Type Natriuretic Pept 880 pg/mL
[2023-12-15] MEDS: ACETAMINOPHEN TAB 500 MG TAB PO STA (18:01)
[2023-12-15] MEDS: ORPHENADRINE 30 MG/ML 2 ML VIAL IVP STA (18:02)
[2023-12-15] MEDS: MORPHINE SULFATE 2 MG/ML SYRINGE IVP STA (18:06)
[2023-12-15 18:52] LABS: Appearance,Urine Clear (Clear); Bilirubin,Urine Negative (Negative); Blood,Urine Negative (Negative); Color,Urine Colorless; Glucose,Urine (UA) Negative (Negative); Ketones,Urine Negative (Negative); Leukocyte Esterase,Urine Negative (Negative); Nitrite,Urine Negative (Negative); Protein,Urine Negative (Negative); Urobilinogen,Urine <2.0 mg/dL (<2.0)
[2023-12-15] MEDS ORDERED: NALOXONE 0.4 MG/ML 1 ML VIAL IV PRN (20:29)
[2023-12-15] MEDS: AZITHROMYCIN 500 MG in SODIUM CHLORIDE 0.9% 250 ML IVPB STA (21:30)
[2023-12-15] MEDS: HYDROcodone/APAP 5-325MG 1 EACH TAB PO STA (22:09)
[2023-12-16] MEDS: HYDROcodone/APAP 5-325MG 1 EACH TAB PO PRN (02:51)
[2023-12-16 09:01] LABS: ALT 20 U/L (10-49); AST 17 U/L (14-35); Albumin 3.4 g/dL (3.8-4.9); Albumin/Globulin Ratio 1.42 Ratio (1.60-3.17); Alkaline Phosphatase 107 U/L (41-126); BUN/Creat Ratio 11.64 Ratio (12.00-20.00); Blood Urea Nitrogen 12.8 mg/dL (9.0-27.0); Calcium 8.3 mg/dL (8.7-10.3); Carbon Dioxide 25.1 mmol/L (21.6-31.8); Chloride 97 mmol/L (96-109); Globulin 2.4 g/dL (1.6-3.3); Glucose 108 mg/dL (70-110); Potassium 3.7 mmol/L (3.5-5.5); Sodium 134 mmol/L (135-145); Total Bilirubin 0.6 mg/dL (0.3-1.2); Total Protein 5.8 g/dL (6.2-8.2)
[2023-12-16 09:02] LABS: HGB 10.2 g/dL (13.0-17.0); MCH 26.2 pg (27.0-32.0); MCHC 30.9 g/dL (32.0-37.0); MCV 84.6 FL (80.0-97.0); Mean Platelet Volume 10.3 FL (9.5-12.2); NRBC Per 100 WBC 0 X 10*3/uL (0.00-0.01); Platelet Count 369 X 10*3/uL (140-440); RDW 18.1 % (11.5-14.5); WBC 9.43 X 10*3/uL (4.50-10.00)
[2023-12-16 09:59] LABS: Basophils # (M) 0.19 X 10*3/uL (0.00-0.10); Eosinophils # (M) 0 X 10*3/uL (0.04-0.35); Monocytes # (M) 1.51 X 10*3/uL (0.20-1.00); Neutrophils # (M) 6.04 X 10*3/uL (1.80-7.70); Neutrophils % (M) 64 %; RBC Morphology Normal (Normal)
[2023-12-16] MEDS ORDERED: IOPAMIDOL CONTRAST (ORAL USE) VIAL PO PRN ×2 (12:22→13:17)
[2023-12-16] MEDS: HYDROmorphone 0.5 MG/0.5 ML SYRINGE IVP PRN (12:38)
[2023-12-16] MEDS: PIPERACILLIN-TAZOBACTAM 3.375 GM in SODIUM CHLORIDE 0.9% 100 ML IVPB SCH (12:45)
[2023-12-16] MEDS: THIAMINE 100 MG TAB PO SCH (13:59)
--- NOTE | 2023-12-16 15:35 | P.CNPUL ---
History of Present Illness Consult date: 12/16/23 Requesting physician: Randal Farley Reason for consult: abnormal CXR/CT Chief complaint: Headache, stiff neck, shoulder pain History of present illness: Is an 83-year-old male patient with a known history of hypertension, hyperlipidemia, gastroesophageal reflux disease, BPH. He was brought into the emergency room today with a 1 day history of stiff neck, shoulder pain and weakness. His family states he has been getting progressively weak over the past 2 weeks. Chest x-ray shows fluid volume overload consistent with mild to moderate CHF. Mild bilateral pleural effusions. Left shoulder x-ray reveals no acute osseous pathology. Possible rotator cuff tear. Moderate shoulder osteoarthrosis. X-ray of the cervical neck revealed no fracture or dislocation. There is moderate degenerative disc disease. White count 9.43. Hemoglobin 10.2. Platelets 369. D-dimer 2.0. Sodium 134. Potassium 3.7. Bicarb 25. BUN 13. Creatinine 1.1. Glucose 108. Troponin 0.038. 0.031. Urinalysis is clean. Viral screen negative. He is seen in consultation in the emergency department. Family is at the bedside and they are stating he has now complaining of a headache is acting differently than earlier today. He denies any worsening shortness of breath, cough or congestion. Is maintaining O2 saturations in the 90s on 2 L/min per nasal cannula. He is afebrile. Hemodynamically stable. He was given ceftriaxone and azithromycin. Currently on Zosyn. Review of Systems REVIEW OF SYSTEMS: CONSTITUTIONAL: Positive for generalized weakness. Denies any recent significant weight loss or weight gain. EYES: Denies change in vision. EARS, NOSE, MOUTH, THROAT: Denies headaches, denies sore throat. CARDIOVASCULAR: Denies chest pain, palpitations or syncopal episodes. RESPIRATORY: Positive for shortness of breath, no cough, congestion or hemoptysis. GASTROINTESTINAL: Denies change in appetite, denies abdominal pain GENITOURINARY: Denies hematuria, denies infections. MUSKULOSKELETAL: Positive for neck and back pain. Denies swelling. INTEGUMENTARY: Denies rash, denies eczema. NEUROLOGICAL: Positive for headache. Denies recent memory loss, no recent seizure activity. PSYCHIATRIC: Denies anxiety, denies depression. HEMATOLOGIC/LYMPHATIC: Denies anemia, denies enlarged lymph nodes. Past Medical History Past Medical History: Cancer, Deep Vein Thrombosis (DVT), GERD/Reflux, Hyperlipidemia, Hypertension, Osteoarthritis (OA), Prostate Disorder Additional Past Medical History / Comment(s): skin CA,hx stomach ulcer w/ bleeding 2021-received blood transfusion, prostate CA-received radiation tx approx 15 yrs ago, yesica wrist swelling-takes daily dose of prednisone, diverticulitis-perforated bowel, Ruptured esaphogeal ulcer with caterization 09/2023 with 4 blood transfuions, Tick bite with bulls eye rash 2020, DVT in left calf after knee replacement, History of Any Multi-Drug Resistant Organisms: None Reported Past Surgical History: Bowel Resection, Hernia Repair, Orthopedic Surgery Additional Past Surgical History / Comment(s): yesica. knee, shoulder, temporary colostomy and reversal, yesica inguinal hernia, skin CA removal Past Anesthesia/Blood Transfusion Reactions: No Reported Reaction Additional Past Anesthesia/Blood Transfusion Reaction / Comment(s): no problems with prior blood transfusion. Stated "had ruptured a vessel when was intubated (was vomiting blood) and had to have blood transfusion with knee surgery approx 11 yrs ago at [facility]"-had general anesthesia with no problems Past Psychological History: No Psychological Hx Reported Smoking Status: Never smoker Past Alcohol Use History: Occasional Past Drug Use History: None Reported - Past Family History Mother Family Medical History: Cancer Additional Family Medical History / Comment(s): breast Medications and Allergies Home Medications Medication Instructions Recorded Confirmed Type Tamsulosin [Flomax] 0.4 mg PO BID 10/09/21 12/15/23 History Atorvastatin [Lipitor] 20 mg PO DAILY 07/14/23 12/15/23 History Finasteride [Proscar] 5 mg PO DAILY 07/14/23 12/15/23 History Olmesartan/Hydrochlorothiazide 1 tab PO DAILY 07/14/23 12/15/23 History [Olmesartan-Hctz 20-12.5 mg Tab] Ascorbic Acid [Vitamin C] 500 mg PO HS 12/15/23 12/15/23 History Ferrous Sulfate [Feosol] 325 mg PO HS 12/15/23 12/15/23 History Omeprazole 20 mg PO DAILY 12/15/23 12/15/23 History Allergies Allergy/AdvReac Type Severity Reaction Status Date / Time No Known Allergies Allergy Verified 12/15/23 14:38 Physical Exam Vitals: Vital Signs Temp Pulse Pulse Resp BP BP Pulse Ox 12/16/23 15:20 96 19 126/85 100 12/16/23 14:00 98.9 F 93 14 132/84 93 L 12/16/23 11:00 86 12 127/80 93 L 12/16/23 07:00 87 16 123/79 94 L 12/16/23 03:33 98.8 F 75 16 125/75 99 12/16/23 00:23 80 15 111/84 100 12/15/23 22:03 98.9 F 86 16 99/62 93 L 12/15/23 19:39 99.0 F 12/15/23 18:09 96 16 100/69 93 L 12/15/23 15:49 100.1 F H 103 H 16 146/97 94 L GENERAL EXAM: Alert, 83-year-old male patient on 2 L nasal cannula, uncomfortable lying on the stretcher, complaining of headache. HEAD: Normocephalic. EYES: Normal reaction of pupils, equal size. NOSE: Clear with pink turbinates. THROAT: No erythema or exudates. NECK: No masses, no JVD. CHEST: No chest wall deformity. LUNGS: Equal air entry with crackles in the bases. CVS: S1 and S2 normal with no audible murmur, regular rhythm. ABDOMEN: No hepatosplenomegaly, normal bowel sounds, no guarding or rigidity. SPINE: No scoliosis or deformity SKIN: No rashes CENTRAL NERVOUS SYSTEM: No focal deficits, tone is normal in all 4 extremities. EXTREMITIES: There is no peripheral edema. No clubbing, no cyanosis. Peripheral pulses are intact. Results - Laboratory Findings CBC and BMP: 12/16/23 06:01 12/16/23 06:01 PT/INR, D-dimer PT 12.0 sec (10.0-12.5) 12/15/23 14:20 INR 1.1 (<1.2) 12/15/23 14:20 D-Dimer 2.00 mg/L FEU (<0.60) H 12/16/23 12:30 Abnormal lab findings: Abnormal Labs 12/15/23 12/15/23 12/15/23 14:20 14:20 21:03 RBC 4.26 L Hgb 11.6 L D Hct 35.3 L MCH MCHC RDW 17.3 H Plt Count 457 H Monocytes # 1.7 H Monocytes # (Manual) Eosinophils # (Manual) Basophils # (Manual) D-Dimer Sodium 134 L BUN/Creatinine Ratio Glucose 110 H Calcium Troponin I 0.038 H* C-Reactive Protein Total Protein Albumin Albumin/Globulin Ratio 12/16/23 12/16/23 12/16/23 06:01 06:01 12:30 RBC 3.90 L Hgb 10.2 L Hct 33.0 L MCH 26.2 L MCHC 30.9 L RDW 18.1 H Plt Count Monocytes # Monocytes # (Manual) 1.51 H Eosinophils # (Manual) 0 L Basophils # (Manual) 0.19 H D-Dimer 2.00 H Sodium 134 L BUN/Creatinine Ratio 11.64 L Glucose Calcium 8.3 L Troponin I C-Reactive Protein Total Protein 5.8 L Albumin 3.4 L Albumin/Globulin Ratio 1.42 L 12/16/23 12:30 RBC Hgb Hct MCH MCHC RDW Plt Count Monocytes # Monocytes # (Manual) Eosinophils # (Manual) Basophils # (Manual) D-Dimer Sodium BUN/Creatinine Ratio Glucose Calcium Troponin I C-Reactive Protein 17.6 H Total Protein Albumin Albumin/Globulin Ratio - Diagnostic Findings Chest x-ray: image reviewed Assessment and Plan Assessment: Generalized weakness with neck and back pain, and more recently a headache Shortness of breath secondary to suspected systolic versus diastolic congestive heart failure Acute hypoxic respiratory failure secondary to above, on 2 L nasal cannula History of hypertension History of hyperlipidemia History of BPH Gastroesophageal reflux disease Plan: The patient was seen and evaluated Imaging, labs and medications reviewed Will perform CT scan of the head without contrast due to his new onset headache CT angiogram, cervical neck CAT scan and CT of the abdomen pelvis are pending Continue antibiotics for now Check a procalcitonin Check a proBNP Give Lasix 40 mg IVP x 1 Obtain an echocardiogram We will continue to follow and make further recommendations based on his clinical status I have personally seen and examined the patient, performed the documentation and the assessment and plan as written. Number of minutes spent on the visit: 20.
--- NOTE | 2023-12-16 15:42 | CT ---
EXAMINATION TYPE: CT cervical spine wo con CT DLP: 421.6 mGycm, Automated exposure control for dose reduction was used. DATE OF EXAM: 12/16/2023 3:19 PM COMPARISON: None. CLINICAL INDICATION:Male, 83 years old with history of djd??; PHH, Severe neck pain TECHNIQUE: Axial CT images from the skull base to the inferior aspect of T2 we obtained without intra venous contrast. Coronal and sagittal reformatted images were also reviewed. Contrast used: mL of , (if blank None) Oral contrast used: (if blank None) FINDINGS: Fracture: None. Osseous structures: Multilevel degenerative disc disease changes with endplate spurring and disc oste ophyte complex's. Vertebral alignment: Grade 1 anterolisthesis of C4 on C5 and C5 and C6. Spinal canal/Neural Foramina: No evidence of significant spinal canal narrowing. Facet joint uncovert ebral joint arthropathy scattered throughout the cervical spine with varying degrees of neural forami nal stenosis. Findings worse at C4-C5 and C5-C6 with at least moderate right stenosis. Neck soft tissues: Prevertebral soft tissues are within normal limits. Other: The airway is patent. Please see dedicated chest for findings in the chest. Paranasal sinus di sease with mucosal thickening. Trace bilateral mastoid air cell effusions. IMPRESSION: 1. No evidence of cervical spine fracture. 2. Moderate to severe multilevel degenerative disc disease. Multilevel neural foraminal narrowing wor se at C4-C5 and C5-C6 on the right. 3. See dedicated CT chest for findings regarding the chest. 4. Grade 1 anterolisthesis of C4 on C5 and C5 on C6.
--- NOTE | 2023-12-16 15:53 | CT ---
EXAMINATION TYPE: CT abdomen pelvis w con CT DLP: 1291.1 mGycm, Automated exposure control for dose reduction was used. DATE OF EXAM: 12/16/2023 3:19 PM COMPARISON: None CLINICAL INDICATION:Male, 83 years old with history of diffuse pains; Pain TECHNIQUE: Axial CT abdomen pelvis w con;Sagittal and coronal reformats were created on a separate w orkstation. Contrast used:100 mL of Isovue 370 with IV Contrast, (none if empty) Oral contrast used: with Oral Contrast (none if empty) FINDINGS: LOWER CHEST: Please see dedicated CT chest for findings ABDOMEN LIVER: Unremarkable GALLBLADDER AND BILE DUCTS: Layering increased densities within the lumen consistent with gallstones are present. PANCREAS: Unremarkable. SPLEEN: Unremarkable. ADRENAL GLANDS: Unremarkable. KIDNEYS AND URETERS: Bilateral renal calculi measuring up to 2 mm on the right and 2 mm on the left. No evidence for hydronephrosis. Remote injury to the left renal cortex appears lobulation. PELVIS BLADDER: Unremarkable REPRODUCTIVE: Brachytherapy beads in the prostate gland. ABDOMEN & PELVIS STOMACH AND BOWEL: No evidence of bowel obstruction. Moderate hiatal hernia. PERITONEUM/RETROPERITONEUM: No evidence of pneumoperitoneum or free fluid. VASCULATURE: No evidence of aortic aneurysm. MUSCULOSKELETAL: No acute osseous abnormalities, fixation hardware to the spine with hardware intact. Multilevel degeneration changes throughout the spine. Grade 1 anterolisthesis of L4 and L5. LYMPH NODES: No gross evidence for lymphadenopathy. SOFT TISSUE/ABDOMINAL WALL: Unremarkable IMPRESSION: 1. No evidence for acute abdominal process. 2. Bilateral nonobstructing renal calculi. 3. Cholelithiasis. 4. Moderate hiatal hernia with oral contrast extending into the esophagus correlate for reflux versu s esophageal dysmotility.
--- NOTE | 2023-12-16 15:56 | CT ---
EXAMINATION TYPE: CT angio chest DATE OF EXAM: 12/16/2023 COMPARISON: None HISTORY: 83-year-old male Pain, assess for PE TECHNIQUE: Contiguous axial scanning of the chest after the administration of 100 ml mL of Isovue 370 . Coronal/sagittal reconstructions performed. CT DLP: 545.4mGycm. Automatic exposure control utilized for a dose reduction. FINDINGS: The heart is borderline enlarged. No flattening of the interventricular septum or reflux of contrast into the hepatic veins. There is a small pericardial effusion measuring 1.3 cm thick. Mild aneurysm ascending aorta 4.1 cm. Conventional arch vessel branching anatomy. Large caliber main right and left pulmonary arteries up to 2.9 cm suggesting underlying pulmonary art lynnetet hypertension. There is suboptimal contrast bolus with attenuation of only 139 Hounsfield units. N o definite large central or lobar branch pulmonary embolus. More distal lobar, segmental, and smaller arterial branches are essentially nondiagnostic. Large 2.3 cm lymph node right hilum. 1.5 cm lymph node lower right paratracheal region. [id number] right pleural effusion. Dependent bilateral lower lobe opacities. Some septal lines and some scattered mild groundglass changes present. Subpleural soft tissue thickening along the anterior pleura of the right mid and lower lung measuring up to 1.5 cm thick. Follow-up to exclude neoplasm here. A few scattered calcified granulomas. There is a moderate-sized hiatal hernia with large contrast column within the thoracic esophagus sugg esting prominent gastroesophageal reflux. Bones: Mild degenerative disc disease mid to lower thoracic spine. Essentially upper thoracic kyphosi s. IMPRESSION: 1. Suboptimal contrast bolus. No large saddle or central embolus is seen. Distal lobar, segmental, an d smaller arterial branches are very limited to nondiagnostic and emboli in these locations cannot be excluded on the basis of this exam. 2. Uiarf-bo-mhomguij right pleural effusion with prominent adjacent atelectasis. Scattered septal marcela es and mild groundglass change. Given pulmonary arterial hypertension, consider early CHF with pulmon carmelo vascular congestion. 3. Prominent patchy opacity at the lower lungs probably atelectasis. Correlate to exclude infectious or aspiration pneumonitis. 4. Unable to exclude abnormal subpleural soft tissue thickening anterior right mid to lower lung shauna uring up to 1.5 cm thick. Consider either PET/CT to assess for any abnormal hypermetabolism and exclu de neoplasm vs followup CT in 3 months. 5. Follow-up to reassess the 2.3 cm right hilar node and 1.5 cm right paratracheal node as well. 6. Small pericardial effusion measuring 1.3 cm thick.
[2023-12-16] MEDS: ONDANSETRON 4 MG/2 ML VIAL IVP PRN (16:15)
[2023-12-16] MEDS: FUROSEMIDE 10 MG/ML 4 ML VIAL IV STA (16:38)
--- NOTE | 2023-12-16 18:07 | XR ---
EXAMINATION TYPE: XR wrist complete LT DATE OF EXAM: 12/16/2023 5:49 PM CLINICAL INDICATION:Male, 83 years old with history of pain; [facility] COMPARISON: An today. Hand radiographs 05/01/2019 TECHNIQUE: XR wrist complete LT; examined in the Frontal, navicular, lateral, and oblique. FINDINGS: The bones are osteopenic, likely on the basis of osteoporosis and are further demineralized compared to prior. There is joint space loss and remodeling change in the left third MCP joint. There is degen erative change in the first carpal metacarpal joint. Deformity of distal ulna likely relating to prev ious trauma. No acute fracture or dislocation is seen. IMPRESSION: 1. NO ACUTE OSSEOUS LESION. 2. EVIDENCE OF OLD TRAUMA. 3. DEGENERATIVE CHANGE.
--- NOTE | 2023-12-16 19:11 | XR ---
EXAMINATION TYPE: XR hand complete LT DATE OF EXAM: 12/16/2023 5:49 PM CLINICAL INDICATION:Male, 83 years old with history of pain; PHH COMPARISON: None TECHNIQUE: XR hand complete LT Frontal, lateral and oblique views were obtained. FINDINGS: The bones are osteopenic, likely on the basis of osteoporosis. There is joint space loss and remodeli ng change in the left third MCP joint. There is degenerative change in the first carpal metacarpal roni int. Deformity of distal ulna likely relating to previous trauma. No acute fracture or dislocation is seen. IMPRESSION: 1. NO ACUTE OSSEOUS LESION. 2. EVIDENCE OF OLD TRAUMA. 3. ARTHRITIC CHANGES.
[2023-12-16] MEDS: CYCLOBENZAPRINE 5 MG TAB PO PRN (20:15)
[2023-12-16] MEDS: ASCORBIC ACID 500 MG TAB PO SCH (20:18)
[2023-12-16] MEDS: TAMSULOSIN 0.4 MG CAP.ER.24H PO SCH (20:18)
[2023-12-16] MEDS: PANTOPRAZOLE 40 MG/10 ML VIAL IVP SCH (20:19)
[2023-12-16] MEDS: FERROUS SULFATE 325 MG TAB PO SCH (20:19)
[2023-12-16] MEDS: HEPARIN SODIUM,PORCINE 5,000 UNIT/ML 1 ML VIAL SQ SCH (20:19)
--- NOTE | 2023-12-16 20:42 | HP ---
HISTORY AND PHYSICAL CHIEF COMPLAINT: Chest pain as well as shoulder and neck pain, is the left shoulder. HISTORY OF PRESENT ILLNESS: This is an 83-year-old gentleman with a past medical history of multiple medical problems, admitted with significant pain, aches, stiffness, and cough also. There is no history of any fever, rigors, or chills at this time. The patient apparently had CT from [facility] previously. Evaluation which showed evidence of DJD in the left shoulder and the chest x-ray which I reviewed personally showed possible pneumonia versus aspiration. The patient is admitted for further evaluation and treatment at this time and troponin 0.03, D-dimer was 2. There is no history of any fever, rigors, or chills. PAST MEDICAL HISTORY: Reviewed include DVT, history of hypertension and hyperlipidemia, dose and rest of history noted. CURRENT MEDICATIONS: Flomax, dose and rest of medications noted. ALLERGIES: None. FAMILY HISTORY: History of breast cancer in the family. SOCIAL HISTORY: Occasional alcohol. REVIEW OF SYSTEMS: A 14-point review is negative except as mentioned. PHYSICAL EXAMINATION: VITAL SIGNS: Pulse 75, blood pressure 120/70, respirations 16. HEENT: Conjunctivae normal. CARDIOVASCULAR: S1, S2. RESPIRATIONS: Diminished at the bases, few scattered rhonchi and crackles. ABDOMEN: Soft, nontender. LEGS: No edema, no swelling. NERVOUS SYSTEM: Nonfocal, diffusely weak. LABORATORY DATA: Reviewed. ASSESSMENT: 1. Diffuse chest pain, neck pain, and left shoulder pain, possible acute bilateral pneumonia. 2. Rule out pulmonary embolus. 3. Rule out musculoskeletal pain including cervical DJD and left shoulder pain, arthritis. 4. Elevated D-dimer. 5. History of DVT. 6. GERD. 7. Hypertension. 8. Hyperlipidemia. 9. Multiple complex medical issues. RECOMMENDATIONS AND DISCUSSION: This 83-year-old gentleman presented with multiple complex medical issues, we will monitor the patient closely. First of all, I have recommended symptomatic treatment of the pain with small dose of IV Dilaudid and I would recommend empiric antibiotics to cover the anaerobic and aspiration. Otherwise, I would also recommend evaluation with Dr. See, Cardiology and as well as Orthopedic surgery. I would also recommend CT angio of the chest. The overall prognosis guarded because of multiple complex medical issues. Further recommendations to follow. I would also recommend CT of the neck and blood cultures also, also serum procalcitonin, CRP, sedimentation rate also. Once again, overall prognosis extremely guarded, which I discussed with the daughter at the bedside and further recommendations to follow. See orders for details. MMODL / IJN: [id number] /
--- NOTE | 2023-12-17 07:48 | P.PN ---
Progress Note - Text Progress Note Date: 12/17/23 IMAGING REVIEW Full consult pending CT C spine reviewed. There is multilevel degenerative changes with Grade I spondylolisthesis of C3-4, and C4-5 noted with severe facet arthrosis, disc collapse that is severe causing b/l foraminal stenosis at C3-7 that is moderate to severe. C0-1 and C1-2 are stable. No fractures noted at this time. Alignment is as stated above and CL is relatively maintained despite the severe spondylosis and collapse with listhesis. If pt having neurological sx related to cervical spine, MRI is recommended to evaluate compressive pathologies.
[2023-12-17] MEDS: LOSARTAN 50 MG TAB PO SCH (08:19)
[2023-12-17] MEDS: ATORVASTATIN 20 MG TAB PO SCH (08:20)
[2023-12-17] MEDS: FINASTERIDE 5 MG TAB PO SCH (08:20)
[2023-12-17] MEDS: hydroCHLOROthiazide 12.5 MG CAP PO SCH (08:21)
[2023-12-17 10:36] LABS: Basophils # (A) 0.02 X 10*3/uL (0.00-0.10); Basophils % (A) 0.2 %; Eosinophils # (A) 0.01 X 10*3/uL (0.04-0.35); Eosinophils % (A) 0.1 %; HCT 30.5 % (39.6-50.0); HGB 9.4 g/dL (13.0-17.0); Lymphocytes # (A) 1.41 X 10*3/uL (0.90-5.00); Lymphocytes % (A) 15.2 %; MCHC 30.8 g/dL (32.0-37.0); MCV 84.5 FL (80.0-97.0); Mean Platelet Volume 10.7 FL (9.5-12.2); Monocytes % (A) 31.3 %; NRBC Per 100 WBC 0 X 10*3/uL (0.00-0.01); Neutrophils # (A) 4.83 X 10*3/uL (1.80-7.70); Neutrophils % (A) 52.2 %; Platelet Count 346 X 10*3/uL (140-440); RBC 3.61 X 10*6/uL (4.40-5.60); RDW 17.7 % (11.5-14.5); WBC 9.26 X 10*3/uL (4.50-10.00)
[2023-12-17 10:41] LABS: ALT 19 U/L (10-49); AST 23 U/L (14-35); Albumin 3.2 g/dL (3.8-4.9); Albumin/Globulin Ratio 1.33 Ratio (1.60-3.17); Alkaline Phosphatase 97 U/L (41-126); BUN/Creat Ratio 14.36 Ratio (12.00-20.00); Blood Urea Nitrogen 15.8 mg/dL (9.0-27.0); Chloride 93 mmol/L (96-109); Globulin 2.4 g/dL (1.6-3.3); Glucose 105 mg/dL (70-110); Sodium 131 mmol/L (135-145); Total Bilirubin 0.6 mg/dL (0.3-1.2); Total Protein 5.6 g/dL (6.2-8.2)
--- NOTE | 2023-12-17 11:05 | P.CNOR ---
History of Present Illness - [facility] Consult date: 12/17/23 Requesting physician: Petra Gao Consult reason: neck pain, other (Right shoulder pain) History of present illness: History of Presenting Illness Patient is a Pleasant 83-year-old male who presented to the ER due to increase of neck pain and left shoulder pain. Patient states he was mowing his lawn 2-3 days ago with no difficulties. He states that when he went to bed that night he had stiffness in his neck and left shoulder. Patient states he has chronic neck pain, it has increased into the left lateral region and into his left upper extremity. He describes a constant sharp left shoulder pain that radiates down to his wrist. He denies any numbness or tingling. Patient has limited ROM of his cervical spine with left rotation. Pain is exacerbated with movement. Denies any injuries. Additionally, family states that over the last couple of weeks he has been very weak and fatigued. Spoke with patient's daughter and she is very concerned about patient's cervical spine. Informed her that I would discuss her concerns with my attending Dr. Carty and update her with plan of care. Review of Systems Pertinent positives and negatives as discussed in HPI, a complete review of systems was performed and all other systems are negative. Physical Examination General: The patient is awake and alert, in no acute distress Skin: Skin is warm and dry with no obvious rashes or lesions. Eye: Pupils are equal, round and reactive to light, extra-ocular movements are intact; there is normal conjunctiva bilaterally. Neck: The neck is supple, there is no tenderness and ROM intact. Cardiovascular: There is a regular rate and rhythm. No murmur, rub or gallop is appreciated. Respiratory: Respirations are non-labored, breath sounds are equal. Gastrointestinal: Soft, slightly distended, tender abdomen to palpation Back: There is no tenderness to palpation in the midline, paralumbar, parathoracic or buttocks region. There is no obvious deformity. Musculoskeletal: Patient does have limited ROM of the cervical spine and left shoulder due to pain. Right: Shoulder abduction 5/5, elbow flexors 5/5, wrist dorsiflexors 5/5. finger abductor 5/5, science tutor 5/5, hip flexor 5/5, knee flexor 5/5, ankle dorsiflexor 5/5, ankle plantarflexion 5/5 and extensor hallucis 5/5. Left: Shoulder abduction unable to perform due to pain, elbow flexors unable to perform due to pain, wrist dorsiflexors 4-/5. finger abductor 4-/5, science tutor 4-/5, hip flexor 5/5, knee flexor 5/5, ankle dorsiflexor 5/5, ankle plantarflexion 5/5 and extensor hallucis 5/5. Neurological: CN 2-12 intact. There are no obvious motor or sensory deficits. Movement and coordination equal and intact. Sensory exam to light touch intact C5-T1 and intact from L2-S1. Reflexes 2/4 in bilateral upper and lower extremities. Negative Hoffmans, babinski, and clonus signs. Psychiatric: Cooperative, appropriate mood & affect, normal judgment. Assessment and Plan CT of the cervical spine has been reviewed by Dr. Carty and documented in previous progress note, at this time we do not recommend any emergent/urgent orthopedic surgical intervention for his cervical spine. Patient may follow-up with Dr. Carty in office for further evaluation as needed regarding cervical pain. Our orthopedic group will be signing off at this time. Please do not hesitate to contact us for any further questions. Consult to [facility] for left shoulder pain with possible rotator cuff tear due to our orthopedic team being out of office. 2. Appreciate medical management 3. Pain management - Continue with current regimen 4. GI prophylaxis -per medicine 5. PT/OT - weightbearing as tolerated with a walker as needed. 6. Appreciate consult I reviewed and discussed this case with my attending Dr. Carty, whom has reviewed this chart and films and is in agreement with assessment and plan of care as outlined above. I have personally seen and examined the patient, performed the documentation and the assessment and plan as written. Number of minutes spent on the visit: 30m. Past Medical History Past Medical History: Cancer, Deep Vein Thrombosis (DVT), GERD/Reflux, Hyperlipidemia, Hypertension, Osteoarthritis (OA), Prostate Disorder Additional Past Medical History / Comment(s): skin CA,hx stomach ulcer w/ bleeding 2021-received blood transfusion, prostate CA-received radiation tx approx 15 yrs ago, yesica wrist swelling-takes daily dose of prednisone, diverticulitis-perforated bowel, Ruptured esaphogeal ulcer with caterization 09/2023 with 4 blood transfuions, Tick bite with bulls eye rash 2020, DVT in left calf after knee replacement, History of Any Multi-Drug Resistant Organisms: None Reported Past Surgical History: Bowel Resection, Hernia Repair, Orthopedic Surgery Additional Past Surgical History / Comment(s): yesica. knee, shoulder, temporary colostomy and reversal, yesica inguinal hernia, skin CA removal Past Anesthesia/Blood Transfusion Reactions: No Reported Reaction Additional Past Anesthesia/Blood Transfusion Reaction / Comm: no problems with prior blood transfusion. Stated "had ruptured a vessel when was intubated (was vomiting blood) and had to have blood transfusion with knee surgery approx 11 yrs ago at [facility]"-had general anesthesia with no problems Past Psychological History: No Psychological Hx Reported Smoking Status: Never smoker Past Alcohol Use History: Occasional Past Drug Use History: None Reported - Past Family History Mother Family Medical History: Cancer Additional Family Medical History / Comment(s): breast Medications and Allergies Home Medications Medication Instructions Recorded Confirmed Type Tamsulosin [Flomax] 0.4 mg PO BID 10/09/21 12/15/23 History Atorvastatin [Lipitor] 20 mg PO DAILY 07/14/23 12/15/23 History Finasteride [Proscar] 5 mg PO DAILY 07/14/23 12/15/23 History Olmesartan/Hydrochlorothiazide 1 tab PO DAILY 07/14/23 12/15/23 History [Olmesartan-Hctz 20-12.5 mg Tab] Ascorbic Acid [Vitamin C] 500 mg PO HS 12/15/23 12/15/23 History Ferrous Sulfate [Feosol] 325 mg PO HS 12/15/23 12/15/23 History Omeprazole 20 mg PO DAILY 12/15/23 12/15/23 History Allergies Allergy/AdvReac Type Severity Reaction Status Date / Time No Known Allergies Allergy Verified 12/15/23 14:38 Results - Labs Labs: Abnormal Lab Results - Last 24 Hours (Table) 12/16/23 12/16/23 12/16/23 Range/Units 06:01 06:01 12:30 RBC 3.90 L (4.40-5.60) X 10*6/uL Hgb 10.2 L (13.0-17.0) g/dL Hct 33.0 L (39.6-50.0) % MCH 26.2 L (27.0-32.0) pg MCHC 30.9 L (32.0-37.0) g/dL RDW 18.1 H (11.5-14.5) % Monocytes # (Manual) 1.51 H (0.20-1.00) X 10*3/uL Eosinophils # (Manual) 0 L (0.04-0.35) X 10*3/uL Basophils # (Manual) 0.19 H (0.00-0.10) X 10*3/uL ESR 62 H (0-20) mm/Hr D-Dimer (<0.60) mg/L FEU Sodium 134 L (135-145) mmol/L BUN/Creatinine Ratio 11.64 L (12.00-20.00) Ratio Calcium 8.3 L (8.7-10.3) mg/dL C-Reactive Protein (<1.0) mg/dL Total Protein 5.8 L (6.2-8.2) g/dL Albumin 3.4 L (3.8-4.9) g/dL Albumin/Globulin Ratio 1.42 L (1.60-3.17) Ratio 12/16/23 12/16/23 Range/Units 12:30 12:30 RBC (4.40-5.60) X 10*6/uL Hgb (13.0-17.0) g/dL Hct (39.6-50.0) % MCH (27.0-32.0) pg MCHC (32.0-37.0) g/dL RDW (11.5-14.5) % Monocytes # (Manual) (0.20-1.00) X 10*3/uL Eosinophils # (Manual) (0.04-0.35) X 10*3/uL Basophils # (Manual) (0.00-0.10) X 10*3/uL ESR (0-20) mm/Hr D-Dimer 2.00 H (<0.60) mg/L FEU Sodium (135-145) mmol/L BUN/Creatinine Ratio (12.00-20.00) Ratio Calcium (8.7-10.3) mg/dL C-Reactive Protein 17.6 H (<1.0) mg/dL Total Protein (6.2-8.2) g/dL Albumin (3.8-4.9) g/dL Albumin/Globulin Ratio (1.60-3.17) Ratio Microbiology - Last 24 Hours (Table) 12/15/23 19:40 Blood Culture - Preliminary Blood 12/15/23 19:25 Blood Culture - Preliminary Blood H & H 12/15/23 12/16/23 Range/Units 14:20 06:01 Hgb 11.6 L D 10.2 L (13.0-17.5) gm/dL Hct 35.3 L 33.0 L (39.0-53.0) % Coagulation 12/15/23 Range/Units 14:20 INR 1.1 (<1.2) Result Diagrams: 12/17/23 06:19 12/17/23 06:19
--- NOTE | 2023-12-17 11:45 | P.PN ---
Subjective Progress Note Date: 12/17/23 This is an 83-year-old male patient with a known history of hypertension, hyperlipidemia, gastroesophageal reflux disease, BPH. He was brought into the emergency room today with a 1 day history of stiff neck, shoulder pain and weakness. His family states he has been getting progressively weak over the p ast 2 weeks. Chest x-ray shows fluid volume overload consistent with mild to moderate CHF. Mild bilateral pleural effusions. Left shoulder x-ray reveals no acute osseous pathology. Possible rotator cuff tear. Moderate shoulder osteoarthrosis. X-ray of the cervical neck revealed no fracture or dislocation. There is moderate degenerative disc disease. White count 9.43. Hemoglobin 10.2. Platelets 369. D-dimer 2.0. Sodium 134. Potassium 3.7. Bicarb 25. BUN 13. Creatinine 1.1. Glucose 108. Troponin 0.038. 0.031. Urinalysis is clean. Viral screen negative. He is seen in consultation in the emergency department. Family is at the bedside and they are stating he has now complain ing of a headache is acting differently than earlier today. He denies any worsening shortness of breath, cough or congestion. Is maintaining O2 saturations in the 90s on 2 L/min per nasal cannula. He is afebrile. Hemodynamically stable. He was given ceftriaxone and azithromycin. Currently on Zosyn. The patient is seen today December 17, 2023 in follow-up on the regular medical floor. He is awake and alert in no acute distress. Maintaining O2 saturations in the mid 90s on 2 L/min per nasal cannula. He is afebrile. Hemodynamically stable. Still having issues with neck pain and left hand numbness. Left hand x-ray reveal no acute osseous lesion. Evidence of old trauma. Arthritic pa es of the left hand and wrist. Blood culture revealing no growth. White count 9.2. Hemoglobin 9.4. Platelets 346. Sodium 131. Potassium 4.0. Bicarb 26. BUN 16. Creatinine 1.1. Procalcitonin negative at 0.11. Is currently on Zosyn. Heparin for DVT prophylaxis. Objective - Vital Signs Vital signs: Vital Signs Temp 98.2 F 12/17/23 06:59 Pulse 82 12/17/23 06:59 Resp 17 12/17/23 06:59 BP 115/71 12/17/23 06:59 Pulse Ox 95 07/31/24 07:52 FiO2 Intake & Output 12/16/23 12/17/23 12/17/23 18:59 06:59 18:59 Intake Total 100 200 Output Total 350 Balance 100 -150 Weight 80.7 kg 80.7 kg Intake: Intake, IV Titration 100 Amount Piperacillin-Tazobactam 3 100 .375 gm In Sodium Chloride 0.9% 100 ml @ 25 mls/hr IVPB Q8H [facility] Rx#: [id number] Oral 200 Output: Urine 350 Other: Voiding Method Urinal External Catheter External Catheter - Exam GENERAL EXAM: Alert, 83-year-old male, on 2 L nasal cannula, resting fairly comfortable in bed. HEAD: Normocephalic. EYES: Normal reaction of pupils, equal size. NOSE: Clear with pink turbinates. THROAT: No erythema or exudates. NECK: No masses, no JVD. CHEST: No chest wall deformity. LUNGS: Equal air entry with crackles in the bases. CVS: S1 and S2 normal with no audible murmur, regular rhythm. ABDOMEN: No hepatosplenomegaly, normal bowel sounds, no guarding or rigidity. SPINE: No scoliosis or deformity SKIN: No rashes CENTRAL NERVOUS SYSTEM: No focal deficits, tone is normal in all 4 extremities. EXTREMITIES: There is no peripheral edema. No clubbing, no cyanosis. Peripheral pulses are intact. - Labs CBC & Chem 7: 12/17/23 06:19 12/17/23 06:19 Labs: Abnormal Lab Results - Last 24 Hours (Table) 12/16/23 12/16/23 12/16/23 Range/Units 12:30 12:30 12:30 RBC (4.40-5.60) X 10*6/uL Hgb (13.0-17.0) g/dL Hct (39.6-50.0) % MCH (27.0-32.0) pg MCHC (32.0-37.0) g/dL RDW (11.5-14.5) % Immature Gran # (0.00-0.04) X 10*3/uL Monocytes # (0.20-1.00) X 10*3/uL Eosinophils # (0.04-0.35) X 10*3/uL ESR 62 H (0-20) mm/Hr D-Dimer 2.00 H (<0.60) mg/L FEU Sodium (135-145) mmol/L Chloride (96-109) mmol/L Calcium (8.7-10.3) mg/dL C-Reactive Protein 17.6 H (<1.0) mg/dL Total Protein (6.2-8.2) g/dL Albumin (3.8-4.9) g/dL Albumin/Globulin Ratio (1.60-3.17) Ratio 12/17/23 12/17/23 Range/Units 06:19 06:19 RBC 3.61 L (4.40-5.60) X 10*6/uL Hgb 9.4 L (13.0-17.0) g/dL Hct 30.5 L (39.6-50.0) % MCH 26.0 L (27.0-32.0) pg MCHC 30.8 L (32.0-37.0) g/dL RDW 17.7 H (11.5-14.5) % Immature Gran # 0.09 H (0.00-0.04) X 10*3/uL Monocytes # 2.90 H (0.20-1.00) X 10*3/uL Eosinophils # 0.01 L (0.04-0.35) X 10*3/uL ESR (0-20) mm/Hr D-Dimer (<0.60) mg/L FEU Sodium 131 L (135-145) mmol/L Chloride 93 L (96-109) mmol/L Calcium 8.0 L (8.7-10.3) mg/dL C-Reactive Protein (<1.0) mg/dL Total Protein 5.6 L (6.2-8.2) g/dL Albumin 3.2 L (3.8-4.9) g/dL Albumin/Globulin Ratio 1.33 L (1.60-3.17) Ratio Microbiology - Last 24 Hours (Table) 12/15/23 19:40 Blood Culture - Preliminary Blood 12/15/23 19:25 Blood Culture - Preliminary Blood Assessment and Plan Assessment: Generalized weakness with neck and back pain, numbness of the left wrist. Multiple images revealed no evidence of acute fracture. Seen by orthopedics. No plans for surgical intervention Shortness of breath secondary to suspected systolic versus diastolic congestive heart failure Acute hypoxic respiratory failure secondary to above, on 2 L nasal cannula History of hypertension History of hyperlipidemia History of BPH Gastroesophageal reflux disease Plan: The patient was seen and evaluated Imaging, labs and medications reviewed Orthopedics plans no surgical intervention Plan is for outpatient follow-up Echocardiogram pending Neurology consulted for headache Procalcitonin 0.11, discontinue Zosyn Titrate down the FiO2 as tolerated Follow-up chest x-ray in a.m. This patient was seen independently by the pulmonary nurse practitioner addressing pulmonary issues I have personally seen and examined the patient, performed the documentation and the assessment and plan as written. Number of minutes spent on the visit: 24.
[2023-12-17] MEDS: FOLIC ACID 1 MG TAB PO SCH (12:29)
[2023-12-17] MEDS: MULTIVITAMINS, THERA 1 EACH TAB PO SCH (12:29)
[2023-12-17] MEDS ORDERED: IPRATROPIUM-ALBUTEROL 3 ML NEB INHALATION PRN (14:24)
[2023-12-17] MEDS: IPRATROPIUM-ALBUTEROL 3 ML NEB INHALATION SCH (18:32)
--- NOTE | 2023-12-17 18:56 | P.CNNES ---
History of Present Illness Consult date: 12/17/23 Requesting physician: Kamilah Taveras Reason for Consult: headache History of Present Illness: This 83-year-old gentleman who is having neck pain. Patient is accompanied with his daughters who is at bedside. Neurologist consulted for headache. Since this past Friday the patient has been having left rotator shoulder blade pain that started in the afternoon and he feels the pain eventually has involve the entire left upper extremity and it is very painful to move as well as posterior neck pain left more than the right and hard to move the neck [id number] because of the pain. He denies of any headache. He denies of any recent fever. It seems that he has been having generalized weakness in the last 2 weeks. Denies any visual disturbance, speech difficulty, swallowing difficulty, any weakness or pain in the lower extremity or right upper extremity. Denies any sick contacts. Denies any history of stroke. He does have history of recent DVT after left knee replacement and initially was placed on blood thinner but was stopped because of was found he had a bleeding ulcer. He has a history of right rotator cuff injury. He has a history of hypertension. No history of stroke. Last few days he had low-grade fevers. No confusion. Some of the workup during this hospital visit consisted of: Tmax of 100.1 Fahrenheit in our facility that was once otherwise afebrile. White blood cell has been within normal limits CRP 17.6. ESR is 62 I reviewed the rest of the lab workup CT cervical spine is reported as no evidence of cervical spine fracture. Moderate to severe multilevel degeneration disc disease. Multilevel neuroforaminal narrowing worse at C4-C5 and C5-C6 on the right. Hand x-ray the left is reported as arthritic changes. Evidence of old trauma. No acute osseous lesion. Review of Systems Positive and negative as per HPI Past Medical History Past Medical History: Cancer, Deep Vein Thrombosis (DVT), GERD/Reflux, Hyperli pidemia, Hypertension, Osteoarthritis (OA), Prostate Disorder Additional Past Medical History / Comment(s): skin CA,hx stomach ulcer w/ bleeding 2021-received blood transfusion, prostate CA-received radiation tx approx 15 yrs ago, yesica wrist swelling-takes daily dose of prednisone, diverticulitis-perforated bowel, Ruptured esaphogeal ulcer with caterization 09/2023 with 4 blood transfuions, Tick bite with bulls eye rash 2020, DVT in left calf after knee replacement, History of Any Multi-Drug Resistant Organisms: None Reported Past Surgical History: Bowel Resection, Hernia Repair, Orthopedic Surgery Additional Past Surgical History / Comment(s): yesica. knee, shoulder, temporary colostomy and reversal, yesica inguinal hernia, skin CA removal Past Anesthesia/Blood Transfusion Reactions: No Reported Reaction Additional Past Anesthesia/Blood Transfusion Reaction / Comment(s): no problems with prior blood transfusion. Stated "had ruptured a vessel when was intubated (was vomiting blood) and had to have blood transfusion with knee surgery approx 11 yrs ago at [facility]"-had general anesthesia with no problems Past Psychological History: No Psychological Hx Reported Smoking Status: Never smoker Past Alcohol Use History: Occasional Past Drug Use History: None Reported - Past Family History Mother Family Medical History: Cancer Additional Family Medical History / Comment(s): breast Medications and Allergies Home Medications Medication Instructions Recorded Confirmed Type Tamsulosin [Flomax] 0.4 mg PO BID 10/09/21 12/15/23 History Atorvastatin [Lipitor] 20 mg PO DAILY 07/14/23 12/15/23 History Finasteride [Proscar] 5 mg PO DAILY 07/14/23 12/15/23 History Olmesartan/Hydrochlorothiazide 1 tab PO DAILY 07/14/23 12/15/23 History [Olmesartan-Hctz 20-12.5 mg Tab] Ascorbic Acid [Vitamin C] 500 mg PO HS 12/15/23 12/15/23 History Ferrous Sulfate [Feosol] 325 mg PO HS 12/15/23 12/15/23 History Omeprazole 20 mg PO DAILY 12/15/23 12/15/23 History Allergies Allergy/AdvReac Type Severity Reaction Status Date / Time No Known Allergies Allergy Verified 12/15/23 14:38 Physical Examination - Vital Signs Vital Signs: Vital Signs Temp Pulse Resp BP Pulse Ox 12/17/23 12:31 98.1 F 72 16 127/82 97 12/17/23 07:52 95 12/17/23 06:59 98.2 F 82 17 115/71 95 12/17/23 01:40 97.1 F L 89 16 128/84 96 12/16/23 20:00 15 12/16/23 19:11 99.1 F 101 H 15 106/64 94 L Intake and Output 12/17/23 12/17/23 12/17/23 06:59 14:59 22:59 Intake Total 200 Output Total 350 525 Balance -150 -525 Intake: Oral 200 Output: Urine 350 525 Other: Voiding Method External Catheter Weight 80.7 kg 80.7 kg GENERAL: The patient is lying in bed and is in mild to moderate acute distress. NEUROLOGICAL: Higher mental function: The patient is awake, alert, oriented to self, place and time. Patient is following commands. No aphasia and no neglect. Cranial nerves: The pupils are round, equal and reactive to light and accommodation. Visual rosales are full to confrontation throughout. Extraocular movement is intact no nystagmus is noted. Facial sensation is normal to touch throughout. The facial strength is normal throughout. Hearing is mildly decreased bilaterally to hand rub. Tongue is midline and moved [id number] without any difficulty. No dysarthria is noted. Shoulder shrug is limited because of pain. Motor: The strength in left upper extremity is limited because of pain. 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 Was in pain when I att empted to move left upper extremity. Otherwise strength 5 over 5 throughout. Normal tone and bulk otherwise. Cerebellum: Normal finger to nose on right. Sensation: Sensation is normal to touch throughout. Reflexes (right/left):Limited in left upper extremity because of pain. Otherwise, Reflex 2+ throughout. Plantars are downgoing bilaterally. Results - Laboratory Findings CBC and BMP: 12/17/23 06:19 12/17/23 06:19 Abnormal Lab Findings: Abnormal Labs 12/15/23 12/15/23 12/15/23 14:20 14:20 21:03 RBC 4.26 L Hgb 11.6 L D Hct 35.3 L MCH MCHC RDW 17.3 H Plt Count 457 H Immature Gran # Monocytes # 1.7 H Monocytes # (Manual) Eosinophils # Eosinophils # (Manual) Basophils # (Manual) ESR D-Dimer Sodium 134 L Chloride BUN/Creatinine Ratio Glucose 110 H Calcium Troponin I 0.038 H* C-Reactive Protein Total Protein Albumin Albumin/Globulin Ratio 12/16/23 12/16/23 12/16/23 06:01 06:01 12:30 RBC 3.90 L Hgb 10.2 L Hct 33.0 L MCH 26.2 L MCHC 30.9 L RDW 18.1 H Plt Count Immature Gran # Monocytes # Monocytes # (Manual) 1.51 H Eosinophils # Eosinophils # (Manual) 0 L Basophils # (Manual) 0.19 H ESR 62 H D-Dimer Sodium 134 L Chloride BUN/Creatinine Ratio 11.64 L Glucose Calcium 8.3 L Troponin I C-Reactive Protein Total Protein 5.8 L Albumin 3.4 L Albumin/Globulin Ratio 1.42 L 12/16/23 12/16/23 12/17/23 12:30 12:30 06:19 RBC 3.61 L Hgb 9.4 L Hct 30.5 L MCH 26.0 L MCHC 30.8 L RDW 17.7 H Plt Count Immature Gran # 0.09 H Monocytes # 2.90 H Monocytes # (Manual) Eosinophils # 0.01 L Eosinophils # (Manual) Basophils # (Manual) ESR D-Dimer 2.00 H Sodium Chloride BUN/Creatinine Ratio Glucose Calcium Troponin I C-Reactive Protein 17.6 H Total Protein Albumin Albumin/Globulin Ratio 12/17/23 06:19 RBC Hgb Hct MCH MCHC RDW Plt Count Immature Gran # Monocytes # Monocytes # (Manual) Eosinophils # Eosinophils # (Manual) Basophils # (Manual) ESR D-Dimer Sodium 131 L Chloride 93 L BUN/Creatinine Ratio Glucose Calcium 8.0 L Troponin I C-Reactive Protein Total Protein 5.6 L Albumin 3.2 L Albumin/Globulin Ratio 1.33 L Assessment and Plan Assessment: This is an 83-year-old gentleman who has been having generalized weakness in the last 2 weeks and this past Friday he developed left shoulder blade pain in the afternoon that involved the entire left upper extremity but posterior neck pain left more than right. He has elevated ESR and CRP white blood cell is within normal limits. CT cervical spine is reported as moderate to severe multilevel degenerative disc disease worse at C4-C5 and C5-C6 on the right. Left shoulder pain involving the left upper extremity and posterior neck left more than right with elevated ESR CRP: Rule out inflammation/infection process v ersus vasculitis especially with the generalized weakness and that inflammatory markers Recent DVT after left knee replacement. No on anticoagulation since was found to have recent bleeding ulcer Bilateral knee replacement History of osteoarthritis Underlying history of hypertension History of stomach ulcer with bleeding in 2021 Plan: CT of the head is ordered by the pulmonary team is pending MRI of the cervical spine is ordered by the primary team is pending I ordered DARNELL, SRUTHI, ANCA/PANCA, RF, antiDsDNA, complement 3/4, complement total, anticanticardiolipin antibody, hepatitis panel. Ordered TSH, vitamin B12, folate. Orthopedic surgery team is consulted General surgery team is also consulted I recommend consulting job tracer Defer the rest of the medical management to primary and other specialist Plan discussed with the patient and his daughter she was at bedside as well as his nurse Thank for the consultation Time with Patient: Greater than 30
--- NOTE | 2023-12-17 19:24 | CA ---
Transthoracic Echo Report Name: Rigo Aguirre Age: 83 Gender: M : 1940 Exam Date: 12/17/2023 10:42 Exam Location: [facility] Ht (in): 70 Wt (lb): 175 Ordering Physician: Kerri Rivera Attending/Referring Phys: Showroom Consultant Sue Rincon RDCS Procedure CPT: Indications: chf Cardiac Hx: Technical Quality: Technically difficult study Contrast 1: Definity Total Dose (mL): 2 Contrast 2: Total Dose (mL): MEASUREMENTS (Male / Female) Normal Values 2D ECHO LVOT Diameter 2.7 cm LV Diastolic Volume MOD BP 85.8 cm??? 67 - 155 / 56 - 104 cm??? LV Systolic Volume MOD BP 36.8 cm??? 22 - 58 / 19 - 49 cm??? LV Ejection Fraction MOD BP 57.1 % >= 55 % LV Cardiac Index MOD BP 1750.4 cm???/min???m??? LV Diastolic Volume MOD 4C 88.5 cm??? LV Systolic Volume MOD 4C 39.3 cm??? LV Ejection Fraction MOD 4C 55.6 % LV Cardiac Index MOD 4C 1756.1 cm???/min???m??? LV Diastolic Length 4C 7.7 cm LV Systolic Length 4C 7.0 cm LV Diastolic Volume MOD 2C 82.3 cm??? LV Systolic Volume MOD 2C 31.3 cm??? LV Ejection Fraction MOD 2C 61.9 % LV Cardiac Index MOD 2C 1818.9 cm???/min???m??? LV Diastolic Length 2C 7.5 cm LV Systolic Length 2C 6.4 cm Ascending Aorta Diameter 4.0 cm DOPPLER AV Peak Velocity 249.6 cm/s AV Peak Gradient 24.9 mmHg AV Mean Velocity 194.9 cm/s AV Mean Gradient 16.4 mmHg AV Velocity Time Integral 51.7 cm LVOT Peak Velocity 101.1 cm/s LVOT Peak Gradient 4.1 mmHg LVOT Velocity Time Integral 20.7 cm LVOT Stroke Volume 119.4 cm??? LVOT Stroke Volume Index 60.5 ml/m??? LVOT Cardiac Index 4262.1 cm???/min???m??? AV Area Cont Eq vti 2.3 cm??? AV Area Cont Eq pk 2.3 cm??? MV Area PHT 3.0 cm??? Mitral E Point Velocity 46.0 cm/s Mitral A Point Velocity 67.7 cm/s Mitral E to A Ratio 0.7 MV Deceleration Time 249.4 ms TR Peak Velocity 213.8 cm/s TR Peak Gradient 18.3 mmHg Right Atrial Pressure 20.0 mmHg Pulmonary Artery Systolic Pressu 38.3 mmHg Right Ventricular Systolic Press 38.3 mmHg PV Peak Velocity 104.2 cm/s PV Peak Gradient 4.3 mmHg FINDINGS Left Ventricle Left ventricular ejection fraction is estimated at 55-60 %. Left ventricular cavity size normal. Left ventricular wall thickness normal. No obvious regional wall motion abnormalities. Right Ventricle Right ventricle not well visualized. Mild pulmonary hypertension. Right Atrium Right atrium not well visualized. Left Atrium Left atrium not well visualized. Mitral Valve Structurally normal mitral valve. No evidence for mitral valve prolapse. No mitral stenosis, regurgitation or prolapse. Aortic Valve Aortic valve not well visualized. Aortic valve sclerosis. No aortic valve stenosis or regurgitation. Tricuspid Valve Structurally normal tricuspid valve. No tricuspid stenosis. Trace to mild tricuspid regurgitation. Pulmonic Valve Pulmonic valve not well visualized. No pulmonic stenosis. Trace pulmonic regurgitation. Pericardium Small pericardial effusion. Aorta Aortic annulus normal. Ascending aorta borderline enlarged. CONCLUSIONS Diagnosis: Chest pain shortness of breath LVH with preserved systolic function Small pericardial effusion Dilated IVC Previewed by: Dr. Ronny Molina MD (Electronically Signed) Final Date: 17 December 2023 19:23
--- NOTE | 2023-12-17 20:36 | PN ---
PROGRESS NOTE DATE OF SERVICE: 12/17/2023 SUBJECTIVE: This is an 83-year-old gentleman who was admitted with significant chest pain, shoulder pain, neck pain, is being closely monitored at this time. The patient also has pneumonia. The patient had significant DJD. MRI will be ordered. Multiple consultants are following the patient closely. PAST MEDICAL HISTORY: Reviewed. REVIEW OF SYSTEMS: Could not be taken. CURRENT MEDICATIONS: Reviewed include Dexter, dose and rest of medications noted. PHYSICAL EXAMINATION: VITAL SIGNS: Pulse is 72, blood pressure 126/80, respirations 16. CHEST: Few scattered rhonchi and crackles. ABDOMEN: Soft, nontender. LEGS: No edema, no swelling. NERVOUS SYSTEM: Nonfocal. LABORATORY DATA: Hemoglobin 9.4. D-dimer is 2. ESR is 62. ASSESSMENT: 1. Diffuse chest pain, neck pain, left shoulder pain, possible acute bilateral pneumonia. 2. 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 3. Musculoskeletal pain. 4. Elevated D-dimer. 5. History of DVT. 6. GERD. 7. Hypertension. 8. Hyperlipidemia. 9. Multiple complex medical issues. 10.Large pulmonary embolism unlikely. RECOMMENDATIONS AND DISCUSSION: This 83-year-old gentleman admitted with multiple complex medical issues. The patient has bilateral pneumonia. I have recommend to continue the antibiotics and symptomatic treatment of the pain. I would also add bronchodilators. The patient also has some right pleural effusion, closely follow with multiple consultants. Guarded prognosis. Further recommendations to follow. MMODL / IJN: [id number] /
[2023-12-18 03:09] LABS: Hepatitis A Antibody IgM Nonreactive (Nonreactive); Hepatitis B Core IgM Nonreactive (Nonreactive); Hepatitis B Surface Antigen Nonreactive (Nonreactive); Hepatitis C IgG Antibody Nonreactive (Nonreactive)
[2023-12-18 04:41] LABS: Anti-DNA, DS unit <1.0 IU/mL; Anti-Smith Ab Interp Negative (Negative); Cardiolipin Ab IgG Interp Negative (Negative); Cardiolipin Ab IgM Interp Negative (Negative); Cardiolipin IgA Antibody <2.0 U/mL; Cardiolipin IgM Antibody <1.5 U/mL; DNA Double-Stranded Negative (Negative)
--- NOTE | 2023-12-18 07:13 | P.PN ---
Subjective Progress Note Date: 12/18/23 Principal diagnosis: Neck pain Left shoulder pain Patient seen and examined this morning. Patient is resting in bed. He does have complaint of abdominal pain, he reports that he has not been passing gas and has not had a bowel movement since admission. Patient continues to have cervical pain with limited range of motion. He does report that the pain of the left upper extremity into the shoulder has somewhat improved. There is increase of erythema to the left wrist region into the hand with increased edema over the left middle carpometacarpal joint. Patient continues to deny numbness or tingling to the bilateral upper extremities. RN reports patient will be going down to have a MRI of the cervical spine at noon today, we will review and update with further recommendation. Objective - Vital Signs Vital signs: Vital Signs Temp 97.6 F 12/18/23 01:47 Pulse 91 12/18/23 01:47 Resp 16 12/18/23 01:47 BP 123/70 12/18/23 01:47 Pulse Ox 92 L 12/18/23 01:47 FiO2 Intake & Output 12/17/23 12/17/23 12/18/23 06:59 18:59 06:59 Intake Total 200 120 830 Output Total 350 525 800 Balance -150 -405 30 Weight 80.7 kg 80.7 kg 84.5 kg Intake: Oral 200 120 830 Output: Urine 350 525 800 Other: Voiding Method Urinal External Catheter External Catheter External Catheter - Exam General: The patient is awake and alert, in no acute distress Skin: Skin is warm and dry, the left wrist and hand have become erythemic and edematous, most prominent over the left middle carpometacarpal. Eye: Pupils are equal, round and reactive to light, extra-ocular movements are intact; there is normal conjunctiva bilaterally. Neck: The neck is supple, there is moderate tenderness and limited ROM due to pain and stiffness. Cardiovascular: There is a regular rate and rhythm. No murmur, rub or gallop is appreciated. Respiratory: Respirations are non-labored, breath sounds are equal. Gastrointestinal: Soft, slightly distended, tender abdomen to palpation Back: There is no tenderness to palpation in the midline, paralumbar, parathoracic or buttocks region. There is no obvious deformity. Musculoskeletal: Patient does have limited ROM of the cervical spine and left shoulder due to pain. Right: Shoulder abduction 5/5, elbow flexors 5/5, wrist dorsiflexors 5/5. finger abductor 5/5, barrer and tacker 5/5, hip flexor 5/5, knee flexor 5/5, ankle dorsiflexor 5/5, ankle plantarflexion 5/5 and extensor hallucis 5/5. Left: Shoulder abduction NICKI due to pain, elbow flexors 4/5, wrist dorsiflexors 4-/5. finger abductor 4-/5, barrer and tacker 4-/5, hip flexor 5/5, knee flexor 5/5,ankle dorsiflexor 5/5, ankle plantarflexion 5/5 and extensor hallucis 5/5. Neurological: CN 2-12 intact. There are no obvious motor or sensory deficits. Movement and coordination equal and intact. Sensory exam to light touch intact C5-T1 and intact from L2-S1. Reflexes 2/4 in bilateral upper and lower extremities. Negative Hoffmans, babinski, and clonus signs. Psychiatric: Cooperative, appropriate mood & affect, normal judgment. - Labs CBC & Chem 7: 12/17/23 06:19 12/17/23 06:19 Labs: Abnormal Lab Results - Last 24 Hours (Table) 12/17/23 12/17/23 Range/Units 06:19 06:19 RBC 3.61 L (4.40-5.60) X 10*6/uL Hgb 9.4 L (13.0-17.0) g/dL Hct 30.5 L (39.6-50.0) % MCH 26.0 L (27.0-32.0) pg MCHC 30.8 L (32.0-37.0) g/dL RDW 17.7 H (11.5-14.5) % Immature Gran # 0.09 H (0.00-0.04) X 10*3/uL Monocytes # 2.90 H (0.20-1.00) X 10*3/uL Eosinophils # 0.01 L (0.04-0.35) X 10*3/uL Sodium 131 L (135-145) mmol/L Chloride 93 L (96-109) mmol/L Calcium 8.0 L (8.7-10.3) mg/dL Total Protein 5.6 L (6.2-8.2) g/dL Albumin 3.2 L (3.8-4.9) g/dL Albumin/Globulin Ratio 1.33 L (1.60-3.17) Ratio Microbiology - Last 24 Hours (Table) 12/15/23 19:40 Blood Culture - Preliminary Blood 12/15/23 19:25 Blood Culture - Preliminary Blood Assessment and Plan Assessment: Grade I spondylolisthesis of C3-4, and C4-5 with severe facet arthrosis Cervicalgia Left shoulder rotator cuff tear Left upper extremity radiculopathy Left upper extremity weakness Possible rheumatoid arthritis Plan: Consult has been placed for [facility] for left shoulder pain with possible rotator cuff tear due to our orthopedic team being out of office. Recommend evaluation of Left hand for possible abscess developing over the left middle carpometacarpal joint. Recommend consult for infectious disease. Awaiting results of cervical MRI, we will review and update with any further r ecommendations. 2. Appreciate medical management 3. Pain management - Continue with current regimen 4. GI prophylaxis -per medicine 5. PT/OT - weightbearing as tolerated with a walker as needed. 6. Appreciate consult I reviewed and discussed this case with my attending Dr. Carty, whom has reviewed this chart and films and is in agreement with assessment and plan of care as outlined above. I have personally seen and examined the patient, performed the documentation and the assessment and plan as written. Number of minutes spent on the visit: 30m
--- NOTE | 2023-12-18 08:40 | XR ---
EXAMINATION TYPE: XR chest 1V portable DATE OF EXAM: 12/18/2023 6:51 AM CLINICAL INDICATION:Male, 83 years old with history of CHF; [facility] COMPARISON: Chest radiograph from 3 days prior. TECHNIQUE: XR chest 1V portable Frontal view of the chest. FINDINGS: Lungs/Pleura: No evidence of focal consolidation or pneumothorax. Blunting of the costophrenic angles is present. Pulmonary vascularity: Pulmonary vascular congestion. Heart/mediastinum: Cardiomediastinal silhouette is enlarged and stable. Musculoskeletal: No acute osseous pathology. IMPRESSION: Streaky atelectasis with cardiomegaly and bilateral pleural effusions correlate for congestive heart failure.
[2023-12-18 09:38] LABS: Rheumatoid Factor, Qnt 15 IU/mL (0-15)
--- NOTE | 2023-12-18 09:55 | P.CNOR ---
History of Present Illness - [facility] Consult date: 12/18/23 History of present illness: The patient is an 83 year male admitted to with left shoulder and neck pain. An xray was obtained which showed cuff tear arthropathy. Orthopaedics was consulted. The patient was seen this morning. He is accompanied at the bedside by his daughter. He is complaining of shoulder pain. Past Medical History Past Medical History: Cancer, Deep Vein Thrombosis (DVT), GERD/Reflux, Hyperlipidemia, Hypertension, Osteoarthritis (OA), Prostate Disorder Additional Past Medical History / Comment(s): skin CA,hx stomach ulcer w/ bleeding 2021-received blood transfusion, prostate CA-received radiation tx approx 15 yrs ago, yesica wrist swelling-takes daily dose of prednisone, diverticulitis-perforated bowel, Ruptured esaphogeal ulcer with caterization 09/2023 with 4 blood transfuions, Tick bite with bulls eye rash 2020, DVT in left calf after knee replacement, History of Any Multi-Drug Resistant Organisms: None Reported Past Surgical History: Bowel Resection, Hernia Repair, Orthopedic Surgery Additional Past Surgical History / Comment(s): yesica. knee, shoulder, temporary co lostomy and reversal, yesica inguinal hernia, skin CA removal Past Anesthesia/Blood Transfusion Reactions: No Reported Reaction Additional Past Anesthesia/Blood Transfusion Reaction / Comm: no problems with prior blood transfusion. Stated "had ruptured a vessel when was intubated (was vomiting blood) and had to have blood transfusion with knee surgery approx 11 yrs ago at [facility]"-had general anesthesia with no problems Past Psychological History: No Psychological Hx Reported Smoking Status: Never smoker Past Alcohol Use History: Occasional Past Drug Use History: None Reported - Past Family History Mother Family Medical History: Cancer Additional Family Medical History / Comment(s): breast Medications and Allergies Home Medications Medication Instructions Recorded Confirmed Type Tamsulosin [Flomax] 0.4 mg PO BID 10/09/21 12/15/23 History Atorvastatin [Lipitor] 20 mg PO DAILY 07/14/23 12/15/23 History Finasteride [Proscar] 5 mg PO DAILY 07/14/23 12/15/23 History Olmesartan/Hydrochlorothiazide 1 tab PO DAILY 07/14/23 12/15/23 History [Olmesartan-Hctz 20-12.5 mg Tab] Ascorbic Acid [Vitamin C] 500 mg PO HS 12/15/23 12/15/23 History Ferrous Sulfate [Feosol] 325 mg PO HS 12/15/23 12/15/23 History Omeprazole 20 mg PO DAILY 12/15/23 12/15/23 History Allergies Allergy/AdvReac Type Severity Reaction Status Date / Time No Known Allergies Allergy Verified 12/15/23 14:38 Physical Examination Resting comfortably in bed. NAD. Alert and can answer questions. Head is NC/AT. A focused exam of the left UE was conducted. There is no swelling or overlying erythema at the shoulder. There is mild swelling in the hand. He has mild tenderness and pain with PROM of the shoulder. The arm and forearm are soft. He is moving his finger and hand. SILT. Results X-rays of the shoulder show no acute fractures and cuff tear arthropathy. X-rays of the hand and wrist show diffuse arthritic changes and healed distal radius and ulna fractures. - Labs Labs: Abnormal Lab Results - Last 24 Hours (Table) 12/17/23 12/17/23 12/17/23 Range/Units 06:19 06:19 20:24 RBC 3.61 L (4.40-5.60) X 10*6/uL Hgb 9.4 L (13.0-17.0) g/dL Hct 30.5 L (39.6-50.0) % MCH 26.0 L (27.0-32.0) pg MCHC 30.8 L (32.0-37.0) g/dL RDW 17.7 H (11.5-14.5) % Immature Gran # 0.09 H (0.00-0.04) X 10*3/uL Monocytes # 2.90 H (0.20-1.00) X 10*3/uL Eosinophils # 0.01 L (0.04-0.35) X 10*3/uL Sodium 131 L (135-145) mmol/L Chloride 93 L (96-109) mmol/L Calcium 8.0 L (8.7-10.3) mg/dL Total Protein 5.6 L (6.2-8.2) g/dL Albumin 3.2 L (3.8-4.9) g/dL Albumin/Globulin Ratio 1.33 L (1.60-3.17) Ratio Vitamin B12 985.0 H (200.0-944.0) pg/mL Microbiology - Last 24 Hours (Table) 12/15/23 19:40 Blood Culture - Preliminary Blood 12/15/23 19:25 Blood Culture - Preliminary Blood H & H 12/15/23 12/16/23 12/17/23 Range/Units 14:20 06:01 06:19 Hgb 11.6 L D 10.2 L 9.4 L (13.0-17.5) gm/dL Hct 35.3 L 33.0 L 30.5 L (39.0-53.0) % Coagulation 12/15/23 Range/Units 14:20 INR 1.1 (<1.2) Result Diagrams: 12/17/23 06:19 12/17/23 06:19 Assessment and Plan Assessment: Left shoulder pain, etiology left shoulder cuff tear arthropathy. Plan: The patient's shoulder pain is likely from chronic rotator cuff deficient arthritis. He likely has a chronic rotator cuff tear. This chronic condition causes superior migration of the humeral head due to pull of the deltoid and results in a predictable pattern of arthritis. He does not need an MRI to identify a rotator cuff tear as he likely has a chronic tear and an MRI would not add any useful information or change treatment. I would recommend non- surgical treatment. A sling may help. Pain per primary service. If he continues to have issues, he could have a steroid injection. The patient can follow-up as an outpatient with a shoulder specialist. Time with Patient: Greater than 30
[2023-12-18 10:46] LABS: Basophils # (A) 0.01 X 10*3/uL (0.00-0.10); Basophils % (A) 0.2 %; Eosinophils # (A) 0.01 X 10*3/uL (0.04-0.35); Eosinophils % (A) 0.2 %; HCT 30.5 % (39.6-50.0); HGB 9.5 g/dL (13.0-17.0); Lymphocytes # (A) 1.23 X 10*3/uL (0.90-5.00); Lymphocytes % (A) 18.8 %; MCH 25.9 pg (27.0-32.0); MCHC 31.1 g/dL (32.0-37.0); MCV 83.1 FL (80.0-97.0); Mean Platelet Volume 10.5 FL (9.5-12.2); Monocytes # (A) 1.48 X 10*3/uL (0.20-1.00); Monocytes % (A) 22.6 %; NRBC Per 100 WBC 0 X 10*3/uL (0.00-0.01); Neutrophils # (A) 3.79 X 10*3/uL (1.80-7.70); Neutrophils % (A) 57.6 %; Platelet Count 364 X 10*3/uL (140-440); RBC 3.67 X 10*6/uL (4.40-5.60); RDW 17.4 % (11.5-14.5); WBC 6.56 X 10*3/uL (4.50-10.00)
[2023-12-18 10:54] LABS: Calcium 8.1 mg/dL (8.7-10.3); Carbon Dioxide 25.4 mmol/L (21.6-31.8); Chloride 92 mmol/L (96-109); Glucose 130 mg/dL (70-110); Potassium 4.1 mmol/L (3.5-5.5); Sodium 129 mmol/L (135-145)
[2023-12-18] MEDS: LORazepam 2 MG/ML INJ IV PRN (12:17)
--- NOTE | 2023-12-18 12:19 | P.PN ---
Subjective Progress Note Date: 12/18/23 This is an 83-year-old male patient with a known history of hypertension, hyperlipidemia, gastroesophageal reflux disease, BPH. He was brought into the emergency room today with a 1 day history of stiff neck, shoulder pain and weakness. His family states he has been getting progressively weak over the p ast 2 weeks. Chest x-ray shows fluid volume overload consistent with mild to moderate CHF. Mild bilateral pleural effusions. Left shoulder x-ray reveals no acute osseous pathology. Possible rotator cuff tear. Moderate shoulder osteoarthrosis. X-ray of the cervical neck revealed no fracture or dislocation. There is moderate degenerative disc disease. White count 9.43. Hemoglobin 10.2. Platelets 369. D-dimer 2.0. Sodium 134. Potassium 3.7. Bicarb 25. BUN 13. Creatinine 1.1. Glucose 108. Troponin 0.038. 0.031. Urinalysis is clean. Viral screen negative. He is seen in consultation in the emergency department. Family is at the bedside and they are stating he has now complain ing of a headache is acting differently than earlier today. He denies any worsening shortness of breath, cough or congestion. Is maintaining O2 saturations in the 90s on 2 L/min per nasal cannula. He is afebrile. Hemodynamically stable. He was given ceftriaxone and azithromycin. Currently on Zosyn. The patient is seen today December 17, 2023 in follow-up on the regular medical floor. He is awake and alert in no acute distress. Maintaining O2 saturations in the mid 90s on 2 L/min per nasal cannula. He is afebrile. Hemodynamically stable. Still having issues with neck pain and left hand numbness. Left hand x-ray reveal no acute osseous lesion. Evidence of old trauma. Arthritic pa es of the left hand and wrist. Blood culture revealing no growth. White count 9.2. Hemoglobin 9.4. Platelets 346. Sodium 131. Potassium 4.0. Bicarb 26. BUN 16. Creatinine 1.1. Procalcitonin negative at 0.11. Is currently on Zosyn. Heparin for DVT prophylaxis. The patient is seen today December 18, 2023 in follow-up on the regular medical floor. He is awake and alert in no acute distress. His pain is a bit more managed today compared to yesterday. Maintaining good O2 saturations in the 90s on 2 L/min per nasal cannula. He is afebrile. Hemodynamically stable. X-ray shows some streaky atelectasis and small effusions with cardiomegaly. Blood cultures are pending. White count 6.5. Hemoglobin 9.5. Platelets 364. Sodium 129. Potassium 4.1. Bicarb 25. BUN 13. Creatinine 1.0. Glucose 130. Immunology screen negative. Hepatitis screen negative. He is continued on bronchodilators. Heparin for DVT prophylaxis. [place] and Dilaudid for pain control. Will add incentive spirometer. Objective - Vital Signs Vital signs: Vital Signs Temp 98.3 F 12/18/23 07:07 Pulse 95 12/18/23 12:01 Resp 16 12/18/23 07:07 BP 143/72 12/18/23 07:07 Pulse Ox 93 L 12/18/23 08:08 FiO2 Intake & Output 12/17/23 12/18/23 12/18/23 18:59 06:59 18:59 Intake Total 120 830 Output Total 525 800 Balance -405 30 Weight 80.7 kg 84.5 kg Intake: Oral 120 830 Output: Urine 525 800 Other: Voiding Method External Catheter External Catheter - Exam GENERAL EXAM: Alert, 83-year-old male, appears more comfortable today, on 2 L nasal cannula, resting in bed. HEAD: Normocephalic. EYES: Normal reaction of pupils, equal size. NOSE: Clear with pink turbinates. THROAT: No erythema or exudates. NECK: No masses, no JVD. CHEST: No chest wall deformity. LUNGS: Equal air entry with crackles in the bases. CVS: S1 and S2 normal with no audible murmur, regular rhythm. ABDOMEN: No hepatosplenomegaly, normal bowel sounds, no guarding or rigidity. SPINE: No scoliosis or deformity SKIN: No rashes CENTRAL NERVOUS SYSTEM: No focal deficits, tone is normal in all 4 extremities. EXTREMITIES: There is no peripheral edema. No clubbing, no cyanosis. Peripheral pulses are intact. - Labs CBC & Chem 7: 12/18/23 06:08 12/18/23 06:08 Labs: Abnormal Lab Results - Last 24 Hours (Table) 12/17/23 12/18/23 12/18/23 Range/Units 20:24 06:08 06:08 RBC 3.67 L (4.40-5.60) X 10*6/uL Hgb 9.5 L (13.0-17.0) g/dL Hct 30.5 L (39.6-50.0) % MCH 25.9 L (27.0-32.0) pg MCHC 31.1 L (32.0-37.0) g/dL RDW 17.4 H (11.5-14.5) % Monocytes # 1.48 H (0.20-1.00) X 10*3/uL Eosinophils # 0.01 L (0.04-0.35) X 10*3/uL Sodium 129 L (135-145) mmol/L Chloride 92 L (96-109) mmol/L Glucose 130 H (70-110) mg/dL Calcium 8.1 L (8.7-10.3) mg/dL Vitamin B12 985.0 H (200.0-944.0) pg/mL Microbiology - Last 24 Hours (Table) 12/15/23 19:40 Blood Culture - Preliminary Blood 12/15/23 19:25 Blood Culture - Preliminary Blood Assessment and Plan Assessment: Generalized weakness with neck and back pain, numbness of the left wrist, left shoulder pain. Multiple images revealed no evidence of acute fracture. Seen by orthopedics. No plans for surgical intervention Shortness of breath secondary to diastolic congestive heart failure Acute hypoxic respiratory failure secondary to above, on 2 L nasal cannula History of hypertension History of hyperlipidemia History of BPH Gastroesophageal reflux disease Plan: The patient was seen and evaluated Echocardiogram, labs and medications reviewed Chest x-ray reviewed Add incentive spirometer Titrate down the FiO2 as tolerated Increase his activity as tolerated Stable from the pulmonary standpoint This patient was seen independently by the pulmonary nurse practitioner addressing pulmonary issues I have personally seen and examined the patient, performed the documentation and the assessment and plan as written. Number of minutes spent on the visit: 22.
[2023-12-18] MEDS: LORazepam 2 MG/ML INJ ONE (12:26)
--- NOTE | 2023-12-18 13:22 | CDI ---
Documentation Clarification Form Date: 12/18/2023 From: Kerri Hartman RN CCDS Phone: [phone] Admit Date: 12/15/2023 08:30:00 PM Patient Name: Rigo Aguirre Visit Number: [id number] Discharge Date: ATTENTION: The Clinical Documentation Specialists (CDI) and [facility] Coding Staff appreciate your assistance in clarifying documentation. Please respond to the clarification below the line at the bottom and electronically sign. The CDI & [facility] Coding staff will review the response and follow-up if needed. Please note: Queries are made part of the Legal Health Record. If you have any questions, please contact the author of this message via ITS. Doctor/Provider: Petra Gao MD: The patients principal diagnosis the diagnosis that was chiefly responsible for the admission - has not been clearly identified and clarification is requested. The patient presented with the following pain in his neck and left shoulder, weakness and fatigue History/Risk factors: 83-year-old male with a history of skin cancer, HTN, and osteoarthritis Clinical Indicators: 12/14 Triage VS: 142/92, 98.6, 82, 18, 94% room air 12/14 ED note, Clinical Impression: "Pneumonia" 12/15 Pulmonary consult, Assessment: "Shortness of breath secondary to suspected systolic versus diastolic congestive heart failure. Acute hypoxic respiratory failure secondary to above, on 2 L nasal cannula." 12/15 H&P, Assessment: "1.Diffuse chest pain, neck pain, and left shoulder pain, possible acute bilateral pneumonia." 12/16 IM PN, Recommendation and Discussion: The patient has bilateral pneumonia. The patient also has some right pleural effusion." 12/16 Pulmonology PN, Assessment: "Acute hypoxic respiratory failure due to suspected systolic versus diastolic congestive heart failure." 12/17 Pulmonary PN, Assessment: Acute hypoxic respiratory failure secondary to diastolic congestive heart failure." 12/14 X Ray Chest, Impression: "Findings most consistent with [id number] CHF" 12/15 CTA Chest, Impression: "2.Vczyv-[id number] right pleural effusion with prominent adjacent atelectasis. Scattered septal lines and mild groundglass change. Given pulmonary arterial hypertension, consider early CHF with pulmonary vascular congestion. 3. Prominent patchy opacity at the lower lungs probably atelectasis. Correlate to exclude infectious or aspiration pneumonitis." 12/17 X Ray Chest, Impression: "Streaky atelectasis with cardiomegaly and bilateral pleural effusions correlate for congestive heart failure." 12/15 ECHO, EF: 55-60%, Small pericardial effusion 12/14-12/17 WBC: 10.5, 9.43, 9.26, 6.56 12/14 BNP: 880 12/14 Troponin: 0.021, 0.038, 0.031 12/15 Procalcitonin: 0.11 12/15 CRP: 17.6 Treatment: Consult Pulmonology Zithromax 500mg IV once 12/14 Rocephin 2gram IV once 12/14 Zosyn 3.375gram IV B3tyclt 12/15-12/16 Cozaar 100mg oral daily 12/16-12/17 then 50mg oral daily start 12/18 Lasix 40mg IV once 12/15 Hydrochlorothiazide 12.5mg oral daily given once 12/16 In your professional opinion, can you please clarify which diagnosis, after study, was the reason chiefly responsible for the admission? [ ] Bilateral Pneumonia [ ] Acute on chronic diastolic CHF [ ] Bilateral pneumonia and acute on chronic diastolic chf [ ] Bilateral pneumonia ruled out [ ] Acute diastolic CHF ruled out [ ] Other, please specify [ ] Unable to determine Answered in DC summary MTDD
--- NOTE | 2023-12-18 13:41 | CT ---
EXAMINATION TYPE: CT brain wo con CT DLP: 1082 mGycm, Automated exposure control for dose reduction was used. DATE OF EXAM: 12/18/2023 1:16 PM COMPARISON: None. CLINICAL INDICATION:Male, 83 years old with history of Headache, acute, normal neuro exam, LIEBERMAN TECHNIQUE: Brain: Axial CT images of the brain were obtained with coronal and sagittal reformats created and rev iewed. Contrast used: None. Oral contrast used: None. FINDINGS: Brain: Extra-axial spaces: No abnormal extra-axial fluid collections. Ventricular system: Dilatation in proportion to cerebral atrophy. Cerebral parenchyma: Left parietal region deep white and sulci possibly with underlying arachnoid cys t. Cerebral atrophy. No acute intraparenchymal hemorrhage or mass effect. The carnes-white junction is well differentiated. Scattered hypoattenuating areas are seen within the white matter. Slightly more so in the posterior aspect. Cerebellum: Unremarkable. Mass effect: No evidence of midline shift. Intracranial vasculature: Atherosclerotic calcifications of the intracranial vessels. Soft tissues: Normal. Calvarium/osseous structures: No depressed skull fracture. Paranasal sinuses and mastoid air cells: Mild scattered paranasal sinus disease. Visualized orbits: Bilateral aphakia IMPRESSION: 1. No evidence for acute/subacute CVA. 2. Cerebral atrophy with white matter changes in the posterior aspect of the brain. Consider evaluat ion with MRI and clinical correlation for PRES. 3. Deep white in sulci in the left cerebrum possibly with underlying arachnoid cyst.
--- NOTE | 2023-12-18 13:46 | P.PN ---
Progress Note - Text Progress Note Date: 12/18/23 MRI reviewed. C4-5 and C5-6 Spondylolisthesis, grade I. Chronic. Chronic Spondylotic changes. Moderate stenosis. No Lesions, no fractures. No evidence for infective process. Conservative measures recommended. We are not treating the hand condition as we were consulted for the spine and I do not perform hand surgery. Defer further orthopedic treatment to station mechanic apprentice service. Spine will sign off. Pt can follow up in the office for his neck issues.
--- NOTE | 2023-12-18 13:55 | MR ---
EXAMINATION TYPE: MR cervical spine wo con DATE OF EXAM: 12/18/2023 1:10 PM COMPARISON: NONE HISTORY: Neck pain, Unable to move Multiplanar MultiSpin echo imaging of the cervical spine was performed. Comparison: none C2-C3: No evidence for degenerative disc disease. No disc bulge/herniation or protrusion. No Canal stenosis. Foramina are patent bilaterally. C3-C4: No evidence for degenerative disc disease. No disc bulge/herniation or protrusion. No Canal stenosis. Foramina are patent bilaterally. C4-C5: Moderate disc desiccation posterior disc bulge. Effacement of the ventral thecal sac with bord chetna to mild central stenosis. Moderate left foraminal encroachment. C5-C6: Moderate disc desiccation posterior disc bulge. Effacement of the ventral thecal sac with bord chetna to mild central stenosis. Moderate left foraminal encroachment. C6-C7: Mild disc desiccation mild posterior disc bulge. Mild bilateral foraminal encroachment. C7-T1: No evidence for degenerative disc disease. No disc bulge/herniation or protrusion. No Canal stenosis. Foramina are patent bilaterally. Cervical segments are intact. There is normal alignment. Cervical spinal cord is of normal signal. Craniovertebral junction relationships are within normal limits. IMPRESSION: 1. Degenerative disc disease as discussed. 2. Borderline to mild central stenosis at C5 and C5-6.
--- NOTE | 2023-12-18 14:14 | P.PN ---
Subjective Progress Note Date: 12/18/23 This is an 83-year-old male who is monitored on the medical floor. Initially presented to the hospital with concern for left upper extremity pain and weakness as well as a few weeks of fever malaise and weakness at home. 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 There is concern for erythema and swelling of the third MCP joint of the left hand as well as swelling and erythema of the left wrist however her family states that this is chronic in nature and patient has been maintained on oral prednisone outpatient for this for a long time. He was recently taken off the prednisone and it seemed to swelling and redness have returned in his left hand. Patient's ESR and CRP have been elevated. Procalciton level was 0.11. He is not receiving antibiotics. His DARNELL rheumatoid factor are negative. He is ne gative for influenza RSV and Covid. Patient's sodium level was down to 129 there was concern for possibly acute CHF as his chest x-ray shows bilateral pleural effusions and echocardiogram done shows normal LV function with no small pericardial effusion. A proBNP level was found to be 313. Review of Systems Constitutional: Reports fatigue, no fever. Cardio vascular: denied any chest pain, palpitations Gastrointestinal: denied any nausea, vomiting, diarrhea Pulmonary: Denied any shortness of breath cough Neurologic denied any new focal deficits All inpatient medications were reviewed and appropriate changes in these medications as dictated in the interval history and assessment and plan. PHYSICAL EXAMINATION: GENERAL: The patient is alert and oriented x3, not in any acute distress. Well developed, well nourished. HEENT: Pupils are round and equally reacting to light. EOMI. No scleral icterus. No conjunctival pallor. Normocephalic, atraumatic. No pharyngeal erythema. No thyromegaly. CARDIOVASCULAR: S1 and S2 present. No murmurs, rubs, or gallops. PULMONARY: Chest is clear to auscultation, no wheezing or crackles. ABDOMEN: Soft, nontender, distended, normoactive bowel sounds. No palpable organomegaly. MUSCULOSKELETAL: No joint swelling or deformity. EXTREMITIES: No cyanosis, clubbing, or pedal edema. NEUROLOGICAL: Gross neurological examination did not reveal any focal deficits. SKIN: No rashes. swelling and erythema to the left wrist and left middle finger MCP joint Assessment and Plan Left neck and shoulder pain with radiculopathy secondary to grade 1 anterol isthesis C3-4 and C4-5 Acute on chronic diastolic CHF, small pericardial effusion Shortness of breath secondary to CHF Acute hypoxic respiratory failure secondary to above, on 2 L nasal cannula Mild pulmonary hypertension Hyponatremia Hypervolemic from CHF expected to improve with IV lasix Elevated ESR/CRP with concern for inflammatory arthritis vs. Vasculitis Constipation Hypertension currently normotensive Hx of hyperlipidemia BPH Gastroesophagel reflux disease History of GI bleed/ruptured esophageal ulcer in September of 2023 Hx of DVT GI prophylaxis DVT prophylaxis Full Code Plan IV lasix x 1 will be given and monitor renal function Replace BMP in the AM to monitor sodium level Continue norco 5mg every 6 hours and IV dilaudid 1 mg every 3 hours, flexeril as needed Add bowel regimen with pysllium, colace daily and lactulose once Continue IV protonix BID IV solumedrol 40 mg x 1 dose and repeat ESR and CRP. Discontinue hydrochlorothiazide and decrease losartan to 50 mg daily Rule out urinary retention bladder scan X1 PT/OT on consultation Repeat blood work in the AM Greater than 35 minutes has been spent on this complex patient. The impression and plan of care has been dictated by Azul Crawford, Nurse Practitioner as directed. Dr. Oscar MD I have performed a history and physical examination and medical decision making of this patient, discussed the same with the dictator, and agree with the dictators assessment and plan as written, documented as a scribe. Based on total visit time, I have performed more than 50% of this visit. Objective - Vital Signs Vital signs: Vital Signs Temp 98.3 F 12/18/23 07:07 Pulse 90 12/18/23 08:17 Resp 16 12/18/23 07:07 BP 143/72 12/18/23 07:07 Pulse Ox 93 L 12/18/23 08:08 FiO2 Intake & Output 12/17/23 12/18/23 12/18/23 18:59 06:59 18:59 Intake Total 120 830 Output Total 525 800 Balance -405 30 Weight 80.7 kg 84.5 kg Intake: Oral 120 830 Output: Urine 525 800 Other: Voiding Method External Catheter External Catheter - Labs CBC & Chem 7: 12/18/23 06:08 12/18/23 06:08 Labs: Abnormal Lab Results - Last 24 Hours (Table) 12/17/23 12/17/23 12/17/23 Range/Units 06:19 06:19 20:24 RBC 3.61 L (4.40-5.60) X 10*6/uL Hgb 9.4 L (13.0-17.0) g/dL Hct 30.5 L (39.6-50.0) % MCH 26.0 L (27.0-32.0) pg MCHC 30.8 L (32.0-37.0) g/dL RDW 17.7 H (11.5-14.5) % Immature Gran # 0.09 H (0.00-0.04) X 10*3/uL Monocytes # 2.90 H (0.20-1.00) X 10*3/uL Eosinophils # 0.01 L (0.04-0.35) X 10*3/uL Sodium 131 L (135-145) mmol/L Chloride 93 L (96-109) mmol/L Calcium 8.0 L (8.7-10.3) mg/dL Total Protein 5.6 L (6.2-8.2) g/dL Albumin 3.2 L (3.8-4.9) g/dL Albumin/Globulin Ratio 1.33 L (1.60-3.17) Ratio Vitamin B12 985.0 H (200.0-944.0) pg/mL Microbiology - Last 24 Hours (Table) 12/15/23 19:40 Blood Culture - Preliminary Blood 12/15/23 19:25 Blood Culture - Preliminary Blood Assessment and Plan Time with Patient: Greater than 30
[2023-12-18] MEDS: LACTULOSE 20 GM/30 ML CUP PO ONE (14:33)
[2023-12-18] MEDS: methylPREDNISolone SOD SUCCI 40 MG/ML 1 ML VIAL IV SCH (14:33)
[2023-12-18] MEDS: PSYLLIUM HUSK 100% 6 GM PACKET PO SCH (14:33)
[2023-12-18] MEDS: FUROSEMIDE 10 MG/ML 4 ML VIAL IV STA (14:33)
[2023-12-18] MEDS: DOCUSATE 100 MG CAP PO SCH (14:34)
--- NOTE | 2023-12-18 15:20 | P.PN ---
Subjective Progress Note Date: 12/18/23 am following-up with patient and he continues to be about the same. Denies of any new neurological issues. Objective - Vital Signs Vital signs: Vital Signs Temp 98.6 F 12/18/23 12:23 Pulse 100 12/18/23 12:23 Resp 16 12/18/23 12:23 BP 111/72 12/18/23 12:23 Pulse Ox 93 L 12/18/23 12:23 FiO2 Intake & Output 12/17/23 12/18/23 12/18/23 18:59 06:59 18:59 Intake Total 120 830 Output Total 525 800 Balance -405 30 Weight 80.7 kg 84.5 kg Intake: Oral 120 830 Output: Urine 525 800 Other: Voiding Method External Catheter External Catheter External Catheter - Exam General: Lying in be bed and is in acute distress. Neuro: Limited because of pain. He is drowsy but briefly awakeable. Some of the workup during this hospital visit consisted of: No further fevers White blood cell has been within normal limits CRP 17.6. ESR is 62 TSH: 1.560 Vitamin B12: 985 serum folate: 25.7 No factors 50 DARNELL is negative Cedillo antibody is negative WATER TAXI [employer]IVER antibodies negative Double-stranded DNA is negative Anticardiolipin antibodies negative Complement C3 is 149 and C4 is 41.50 I reviewed the rest of the lab workup CT cervical spine is reported as no evidence of cervical spine fracture. Moderate to severe multilevel degeneration disc disease. Multilevel neuroforaminal narrowing worse at C4-C5 and C5-C6 on the right. Hand x-ray the left is reported as arthritic changes. Evidence of old trauma. No acute osseous lesion. - Labs CBC & Chem 7: 12/18/23 06:08 12/18/23 06:08 Labs: Abnormal Lab Results - Last 24 Hours (Table) 12/17/23 12/18/23 12/18/23 Range/Units 20:24 06:08 06:08 RBC 3.67 L (4.40-5.60) X 10*6/uL Hgb 9.5 L (13.0-17.0) g/dL Hct 30.5 L (39.6-50.0) % MCH 25.9 L (27.0-32.0) pg MCHC 31.1 L (32.0-37.0) g/dL RDW 17.4 H (11.5-14.5) % Monocytes # 1.48 H (0.20-1.00) X 10*3/uL Eosinophils # 0.01 L (0.04-0.35) X 10*3/uL Sodium 129 L (135-145) mmol/L Chloride 92 L (96-109) mmol/L Glucose 130 H (70-110) mg/dL Calcium 8.1 L (8.7-10.3) mg/dL Vitamin B12 985.0 H (200.0-944.0) pg/mL Microbiology - Last 24 Hours (Table) 12/15/23 19:40 Blood Culture - Preliminary Blood 12/15/23 19:25 Blood Culture - Preliminary Blood Assessment and Plan Assessment: This is an 83-year-old gentleman who has been having generalized weakness in the last 2 weeks and this past Friday he developed left shoulder blade pain in the afternoon that involved the entire left upper extremity but posterior neck pain left more than right. He has elevated ESR and CRP white blood cell is within normal limits. CT cervical spine is reported as moderate to severe multilevel degenerative disc disease worse at C4-C5 and C5-C6 on the right. Left shoulder pain involving the left upper extremity and posterior neck left more than right with elevated ESR CRP: Rule out inflammation/infection process versus vasculitis versus rotator cuff injury Recent DVT after left knee replacement. No on anticoagulation since was found to have recent bleeding ulcer Bilateral knee replacement History of osteoarthritis Underlying history of hypertension History of stomach ulcer with bleeding in 2021 Plan: CT of the head is ordered by the pulmonary team is pending MRI of the cervical spine is ordered by the primary team is pending Pending SRUTHI, C-AnCA, hepatitis panel. Recommend EMG with NCS of left upper extremity as outpatient. Orthopedic surgery team is consulted General surgery team is also consulted I recommend consulting machinist/machine builder. Defer the rest of the medical management to primary and other specialist Plan discussed with his daughters, primary team N.P. and his nurse Time with Patient: Less than 30
--- NOTE | 2023-12-18 19:13 | P.CRDCN ---
History of Present Illness History of present illness: This is Dr. Molina dictating a consult on this patient The patient was interviewed and examined IMPRESSION / ASSESSMENT: Musculoskeletal chest discomfort associated with neck and shoulder pain related to cervical spine disease Normal LV function small pericardial effusion of no hemodynamic significance PLAN: Continue management of pulmonary condition and cervical spine No further cardiac workup at this point Thank you for the consultation HPI Patient admitted from the ER for pain in the neck and left shoulder. He had a stiff neck and left shoulder worse with movement. Later he developed pain over the left rib cage. Over the last few weeks he has been weak and fatigued 12 EKG showed sinus mechanism left anterior fascicular block normal SD interval no ST segment abnormalities concerning for ischemia 3 troponins were drawn first 1 was normal second 1 was minimally abnormal and third 1 was normal again consistent with lab error Abnormal CT scan of the chest Severe multi level degenerative disc disease with neural foraminal narrowing worst between C4, C5 and C6 on the right side Anterolisthesis of C4 on C5 and C5 on C6 2D echo shows preserved LV size and function ROS: No fever chills or rigors, no cough, phlegm or expectoration, no nausea, vomiting or diarrhea, no hematuria, dysuria, no musculoskeletal complaints, no strokes or seizures, no skin lesions. EXAMINATION: REVIEW OF LABS, ECG & MEDICAL DATA Past Medical History Past Medical History: Cancer, Deep Vein Thrombosis (DVT), GERD/Reflux, Hyperlipidemia, Hypertension, Osteoarthritis (OA), Prostate Disorder Additional Past Medical History / Comment(s): skin CA,hx stomach ulcer w/ bleeding 2021-received blood transfusion, prostate CA-received radiation tx approx 15 yrs ago, yesica wrist swelling-takes daily dose of prednisone, diverticulitis-perforated bowel, Ruptured esaphogeal ulcer with caterization 09/2023 with 4 blood transfuions, Tick bite with bulls eye rash 2020, DVT in left calf after knee replacement, History of Any Multi-Drug Resistant Organisms: None Reported Past Surgical History: Bowel Resection, Hernia Repair, Orthopedic Surgery Additional Past Surgical History / Comment(s): yesica. knee, shoulder, temporary colostomy and reversal, yesica inguinal hernia, skin CA removal Past Anesthesia/Blood Transfusion Reactions: No Reported Reaction Additional Past Anesthesia/Blood Transfusion Reaction / Comment(s): no problems with prior blood transfusion. Stated "had ruptured a vessel when was intubated (was vomiting blood) and had to have blood transfusion with knee surgery approx 11 yrs ago at [facility]"-had general anesthesia with no problems Past Psychological History: No Psychological Hx Reported Smoking Status: Never smoker Past Alcohol Use History: Occasional Past Drug Use History: None Reported - Past Family History Mother Family Medical History: Cancer Additional Family Medical History / Comment(s): breast Medications and Allergies Home Medications Medication Instructions Recorded Confirmed Type Tamsulosin [Flomax] 0.4 mg PO BID 10/09/21 12/15/23 History Atorvastatin [Lipitor] 20 mg PO DAILY 07/14/23 12/15/23 History Finasteride [Proscar] 5 mg PO DAILY 07/14/23 12/15/23 History Olmesartan/Hydrochlorothiazide 1 tab PO DAILY 07/14/23 12/15/23 History [Olmesartan-Hctz 20-12.5 mg Tab] Ascorbic Acid [Vitamin C] 500 mg PO HS 12/15/23 12/15/23 History Ferrous Sulfate [Feosol] 325 mg PO HS 12/15/23 12/15/23 History Omeprazole 20 mg PO DAILY 12/15/23 12/15/23 History Allergies Allergy/AdvReac Type Severity Reaction Status Date / Time No Known Allergies Allergy Verified 12/15/23 14:38 Physical Exam Vitals: Vital Signs Temp Pulse Pulse Resp BP Pulse Ox 12/18/23 18:37 105 H 12/18/23 18:28 100 12/18/23 12:23 98.6 F 100 16 111/72 93 L 12/18/23 12:14 91 12/18/23 12:01 95 12/18/23 08:17 90 12/18/23 08:08 93 93 L 12/18/23 07:07 98.3 F 97 16 143/72 92 L 12/18/23 01:47 97.6 F 91 16 123/70 92 L 12/17/23 20:00 98.5 F 88 16 98/62 Intake and Output 12/18/23 12/18/23 12/18/23 06:59 14:59 22:59 Intake Total 590 960 Output Total 800 2300 Balance -210 -1340 Intake: Oral 590 960 Output: Urine 800 2300 Uretheral (Greene) 800 Other: Voiding Method External Catheter Weight 84.5 kg Results 12/18/23 06:08 12/18/23 06:08 CBC 12/18/23 Range/Units 06:08 WBC 6.56 (4.50-10.00) X 10*3/uL RBC 3.67 L (4.40-5.60) X 10*6/uL Hgb 9.5 L (13.0-17.0) g/dL Hct 30.5 L (39.6-50.0) % Plt Count 364 (140-440) X 10*3/uL Comprehensive Metabolic Panel 12/18/23 Range/Units 06:08 Sodium 129 L (135-145) mmol/L Potassium 4.1 (3.5-5.5) mmol/L Chloride 92 L (96-109) mmol/L Carbon Dioxide 25.4 (21.6-31.8) mmol/L BUN 13.0 (9.0-27.0) mg/dL Creatinine 1.0 (0.6-1.5) mg/dL Glucose 130 H (70-110) mg/dL Calcium 8.1 L (8.7-10.3) mg/dL Current Medications Generic Name Dose Route Start Last Admin Trade Name Freq PRN Reason Stop Dose Admin Hydrocodone Bitart/Acetaminophen 1 each 12/16/23 06:00 12/18/23 17:50 Hydrocodone/Apap 5-325mg 1 Each Tab PO 1 each Q6HR PRN Administration Pain Albuterol/Ipratropium 3 ml 12/17/23 20:00 12/18/23 18:28 Ipratropium-Albuterol 3 Ml Neb INHALATION 3 ml RT-TID MARY Administration Albuterol/Ipratropium 3 ml 12/17/23 14:24 Ipratropium-Albuterol 3 Ml Neb INHALATION RT-TID PRN Shortness Of Breath Or Wheezing Ascorbic Acid 500 mg 12/16/23 21:00 12/17/23 20:26 Ascorbic Acid 500 Mg Tab PO 500 mg HS MARY Administration Atorvastatin Calcium 20 mg 12/17/23 09:00 12/18/23 10:15 Atorvastatin 20 Mg Tab PO 20 mg DAILY MARY Administration Cyclobenzaprine HCl 5 mg 12/16/23 19:49 12/18/23 17:50 Cyclobenzaprine 5 Mg Tab PO 5 mg TID PRN Administration Muscle Spasm Docusate Sodium 100 mg 12/18/23 12:45 12/18/23 14:34 Docusate 100 Mg Cap PO 100 mg DAILY MARY Administration Ferrous Sulfate 325 mg 12/16/23 21:00 12/17/23 20:26 Ferrous Sulfate 325 Mg Tab PO 325 mg HS MARY Administration Finasteride 5 mg 12/17/23 09:00 12/18/23 10:16 Finasteride 5 Mg Tab PO 5 mg DAILY MARY Administration Folic Acid 1 mg 12/17/23 12:00 12/18/23 12:17 Folic Acid 1 Mg Tab PO 1 mg DAILY@1200 MARY Administration Heparin Sodium (Porcine) 5,000 unit 12/16/23 21:00 12/18/23 10:16 Heparin Sodium,Porcine 5,000 Unit/Ml 1 Ml Vial SQ 5,000 unit Q12HR MARY Administration Hydromorphone HCl 0.5 mg 12/16/23 12:26 12/18/23 05:12 Hydromorphone 0.5 Mg/0.5 Ml Syringe IVP 0.5 mg Q3HR PRN Administration Severe Pain (Scale 7 to 10) Lorazepam 1 mg 12/17/23 13:54 12/18/23 12:17 Lorazepam 2 Mg/Ml Inj IV 12/22/23 23:00 1 mg ONCE PRN Administration Anxiety Losartan Potassium 50 mg 12/19/23 09:00 Losartan 50 Mg Tab PO DAILY [facility] Methylprednisolone Sodium Succinate 40 mg 12/18/23 14:15 12/18/23 14:33 Methylprednisolone Sod Succi 40 Mg/Ml 1 Ml Vial IV 40 mg DAILY MARY Administration Multivitamins 1 each 12/17/23 12:00 12/18/23 12:17 Multivitamins, Thera 1 Each Tab PO 1 each DAILY@1200 MARY Administration Naloxone HCl 0.2 mg 12/15/23 20:29 Naloxone 0.4 Mg/Ml 1 Ml Vial IV Q2M PRN Opioid Reversal Ondansetron HCl 4 mg 12/16/23 16:00 12/18/23 10:17 Ondansetron 4 Mg/2 Ml Vial IVP 4 mg Q6HR PRN Administration Nausea And Vomiting Pantoprazole Sodium 40 mg 12/16/23 21:00 12/18/23 10:16 Pantoprazole 40 Mg/10 Ml Vial IVP 40 mg BID MARY Administration Psyllium Hydrophilic Mucilloid 6 gm 12/18/23 12:45 12/18/23 14:33 Psyllium Husk 100% 6 Gm Packet PO 6 gm DAILY MARY Administration Tamsulosin HCl 0.4 mg 12/16/23 21:00 12/18/23 10:16 Tamsulosin 0.4 Mg Cap.Er.24h PO 0.4 mg BID MARY Administration Thiamine HCl 100 mg 12/16/23 12:30 12/18/23 17:45 Thiamine 100 Mg Tab PO 100 mg BID-W/MEALS MARY Administration Intake and Output 12/18/23 12/18/23 12/18/23 06:59 14:59 22:59 Intake Total 590 960 Output Total 800 2300 Balance -210 -1340 Intake: Oral 590 960 Output: Urine 800 2300 Uretheral (Greene) 800 Other: Voiding Method External Catheter Weight 84.5 kg 12/18/23 06:08 12/18/23 06:08
[2023-12-19 08:37] LABS: Basophils # (A) 0.01 X 10*3/uL (0.00-0.10); Basophils % (A) 0.2 %; Eosinophils # (A) 0 X 10*3/uL (0.04-0.35); Eosinophils % (A) 0 %; HCT 30.1 % (39.6-50.0); HGB 9.3 g/dL (13.0-17.0); Lymphocytes % (A) 12.1 %; MCH 26.2 pg (27.0-32.0); MCHC 30.9 g/dL (32.0-37.0); MCV 84.8 FL (80.0-97.0); Mean Platelet Volume 10.6 FL (9.5-12.2); Monocytes # (A) 0.23 X 10*3/uL (0.20-1.00); Monocytes % (A) 4.7 %; NRBC Per 100 WBC 0 X 10*3/uL (0.00-0.01); Neutrophils # (A) 4.08 X 10*3/uL (1.80-7.70); Neutrophils % (A) 82.6 %; Platelet Count 403 X 10*3/uL (140-440); RBC 3.55 X 10*6/uL (4.40-5.60); RDW 17.2 % (11.5-14.5); WBC 4.94 X 10*3/uL (4.50-10.00)
[2023-12-19] MEDS: LOSARTAN 50 MG TAB PO SCH (08:47)
[2023-12-19 08:52] LABS: Magnesium 2.1 mg/dL (1.5-2.4)
[2023-12-19 08:54] LABS: BUN/Creat Ratio 14.22 Ratio (12.00-20.00); Blood Urea Nitrogen 12.8 mg/dL (9.0-27.0); Calcium 8.4 mg/dL (8.7-10.3); Carbon Dioxide 27.3 mmol/L (21.6-31.8); Chloride 96 mmol/L (96-109); Glucose 209 mg/dL (70-110); Potassium 4.4 mmol/L (3.5-5.5); Sodium 135 mmol/L (135-145)
[2023-12-19 10:12] LABS: Erythrocyte Sedimentation Rate 60 mm/Hr (0-20)
[2023-12-19] MEDS: bisacodyL 10 MG SUPP RECTAL STA (10:49)
[2023-12-19] MEDS: PANTOPRAZOLE 40 MG TABLET PO SCH (10:49)
[2023-12-19] MEDS: LACTULOSE 20 GM/30 ML CUP PO ONE (10:49)
[2023-12-19] MEDS: predniSONE 20 MG TAB PO STA (10:49)
[2023-12-19 12:28] VITALS: BP 106/70; PULSE 100; RESP 17; TEMP 98
[2023-12-19 13:40] LABS: C-ANCA <1:20 Titer (<1:20)
[2023-12-19 15:16] VITALS: BMI 26.7
--- NOTE | 2023-12-19 15:41 | P.PN ---
Subjective Progress Note Date: 12/19/23 I am following up with the patient and he feels drastically better today compared to yesterday. He is moving the left arm much better today compared to yesterday. Patient had Solu-Medrol 40 mg once yesterday. He is accompanied with his family members who acknowledged the patient does have arthritis. Objective - Vital Signs Vital signs: Vital Signs Temp 98 F 12/19/23 12:08 Pulse 100 12/19/23 12:08 Resp 17 12/19/23 12:08 BP 106/70 12/19/23 12:08 Pulse Ox 94 L 12/19/23 12:08 FiO2 Intake & Output 12/18/23 12/19/23 12/19/23 18:59 06:59 18:59 Intake Total 960 590 Output Total 2300 1000 200 Balance -1340 -410 -200 Weight 84.6 kg 84.6 kg Intake: Oral 960 590 Output: Urine 2300 1000 200 Uretheral (Greene) 800 Other: Voiding Method External Catheter Indwelling Catheter Indwelling Catheter # Bowel Movements 1 - Exam General: Lying in be bed and is in acute distress. Neuro: Patient is awake alert oriented to self place and time. Is following simple commands. No aphasia. The pupils are round equal reactive to light. Visual rosales are full to confrontation. Extraocular movements intact no nystagmus. No facial weakness. No dysarthria Motor strength is 5 out of 5 throughout. He is moving the left upper extremity drastically better today compared to yesterday. Also lowers are 5 out of 5. He was walking down the hallway with therapy. Some of the workup during this hospital visit consisted of: No further fevers White blood cell has been within normal limits CRP 17.6. ESR is 62 and repeat is 60 TSH: 1.560 Vitamin B12: 985 serum folate: 25.7 No factors 50 DARNELL is negative Cedillo antibody is negative PROFESSOR OF ASTRONOMY antibodies negative Double-stranded DNA is negative Anticardiolipin antibodies negative Complement C3 is 149 and C4 is 41.50. Total complement is >97 (normal is 42-95) Acute hepatitis panel is nonreactive CT cervical spine is reported as no evidence of cervical spine fracture. Moderate to severe multilevel degeneration disc disease. Multilevel neuroforaminal narrowing worse at C4-C5 and C5-C6 on the right. Hand x-ray the left is reported as arthritic changes. Evidence of old trauma. No acute osseous lesion. CT of the head is reported as no evidence for acute/subacute CVA. Cerebral a trophy with white matter changes in the posterior aspect of the brain. Consider evaluation with MRI and clinical correlation for press. Deep white and sulci in the left cerebrum possibly with underlying arachnoid cyst. I read I personally reviewed the CT and I feel that there is no acute or subacute ischemic stroke. I feel the patient has cerebral atrophy and I doubt PRES. MRI cervical is reported as degenerative disc disease. Borderline to mid central stenosis at C5 and C5-C6. - Labs CBC & Chem 7: 12/19/23 02:58 12/19/23 02:58 Labs: Abnormal Lab Results - Last 24 Hours (Table) 12/17/23 12/19/23 12/19/23 Range/Units 20:24 02:58 02:58 RBC 3.55 L (4.40-5.60) X 10*6/uL Hgb 9.3 L (13.0-17.0) g/dL Hct 30.1 L (39.6-50.0) % MCH 26.2 L (27.0-32.0) pg MCHC 30.9 L (32.0-37.0) g/dL RDW 17.2 H (11.5-14.5) % Lymphocytes # 0.60 L (0.90-5.00) X 10*3/uL Eosinophils # 0 L (0.04-0.35) X 10*3/uL ESR 60 H (0-20) mm/Hr Glucose 209 H (70-110) mg/dL Calcium 8.4 L (8.7-10.3) mg/dL C-Reactive Protein 20.70 H (0.00-0.80) mg/dL Tot Complement (CH50) >97 H (42 - 95) U/mL Microbiology - Last 24 Hours (Table) 12/15/23 19:40 Blood Culture - Preliminary Blood 12/15/23 19:25 Blood Culture - Preliminary Blood Assessment and Plan Assessment: This is an 83-year-old gentleman who has been having generalized weakness in the last 2 weeks and this past Friday he developed left shoulder blade pain in the afternoon that involved the entire left upper extremity but posterior neck pain left more than right. He has elevated ESR and CRP white blood cell is within normal limits. CT cervical spine is reported as moderate to severe multilevel degenerative disc disease worse at C4-C5 and C5-C6 on the right. Left shoulder pain involving the left upper extremity and posterior neck left more than right with elevated ESR CRP: Rule out inflammation/ from arthritic changes versus vasculitis. I cannot rule out cervical radiculopathy but seems unlikely and does not have radicular pain----today drastically better after steroid use. Recent DVT after left knee replacement. No on anticoagulation since was found to have recent bleeding ulcer Bilateral knee replacement History of osteoarthritis Underlying history of hypertension History of stomach ulcer with bleeding in 2021 Plan: Pending SRUTHI, C-AnCA, hepatitis panel. Recommend EMG with NCS of left upper extremity as outpatient. I ordered MRI of the brain since there is questionable on the CT which I feel unlikely. Clinically patient is doing drastically better and he is not confused. Feel the patient has generalized cerebral atrophy and there is no posterior white matter changes suggestive of press. He does not have any acute or subacute stroke. Orthopedic surgery team is consulted General surgery team is also consulted Recommend following-up with field agronomist as outpatient. Defer the rest of the medical management to primary and other specialist Recommend the patient to follow-up with a neurologist as an outpatient Addendum: Patient can have MRI Brain as outpatient since per nurse practioner primary team, patient would like it as outpatient and not wait for it. Time with Patient: Less than 30
[2023-12-19 17:42] LABS: Appearance,Urine Clear (Clear); Bilirubin,Urine Negative (Negative); Blood,Urine Small (Negative); Color,Urine Yellow; Glucose,Urine (UA) 3+ (Negative); Ketones,Urine Negative (Negative); Leukocyte Esterase,Urine Large (Negative); Mucus,Urine Rare /hpf; Nitrite,Urine Negative (Negative); PH, Urine 5.5 (5.0-8.0); Protein,Urine Trace (Negative); RBC,Urine 11 /hpf (0-5); Specific Gravity,Urine 1.017 (1.001-1.035); Squamous Epithelial Cell,Urine <1 /hpf (0-4); Urobilinogen,Urine <2.0 mg/dL (<2.0); WBC,Urine 43 /hpf (0-5)
--- NOTE | 2024-01-12 20:21 | CDI ---
Documentation Clarification Form Date: 01/12/2024 08:03:28 PM From: Analilia Cabrera Phone: Admit Date: 12/15/2023 08:30:00 PM Patient Name: Rigo Aguirre Visit Number: [id number] Discharge Date: 12/19/2023 06:04:00 PM ATTENTION: The Clinical Documentation Specialists (CDI) and [facility] Coding Staff appreciate your assistance in clarifying documentation. Please respond to the clarification below the line at the bottom and electronically sign. The CDI & [facility] Coding staff will review the response and follow-up if needed. Please note: Queries are made part of the Legal Health Record. If you have any questions, please contact the author of this message via ITS. Doctor/Provider: Avi Moore Your patient has an abnormal lab value: Glucose 209 per Progress Note 12/18. Please clarify if there is an additional diagnosis and/or clinical significance related to this value. History/Risk Factors: 83yo M, PNA, ACDHF, AHRF, pericardial effusion, HLD, BPH, PHTN, hyponatremia, recentDVTafterBTKR, Hx GIB, OA, HTN Clinical indicators: Glucose: 12/14 110 / 108 / 130 8/1 108-130 / 209 Pt. has been maintained on oral prednisone outpatient for this for a long time. He was recently taken off the prednisone and it seemed toswellingand redness have returned in his left hand. Treatment: glucose monitored Is there an additional diagnosis and/or clinical significance related to the above lab result/information? [ ] Hyperglycemia [ ] Other, please specify [ x] No additional diagnosis/Not clinically significant [ ] Unable to determine (Template Last Revised: June 2020) MTDD
--- NOTE | 2024-01-12 23:02 | P.DS ---
Providers Date of admission: 12/15/23 20:30 Attending physician: Randal Farley MD Consults: 12/16/23 12:04 Consult Physician Routine Consulting Provider: Kamilah Taveras Consult Reason/Comments: Pneumonia Do you want consulting provider notified?: Yes 12/16/23 12:11 Consult Physician Routine Consulting Provider: Ronny Molina Consult Reason/Comments: Chest Pain Do you want consulting provider notified?: Yes 12/16/23 12:24 Consult Physician Routine Consulting Provider: Sage Carty Consult Reason/Comments: neck shoulder pain Do you want consulting provider notified?: Yes 12/16/23 16:10 Consult Physician Routine Consulting Provider: Norman Leiva Consult Reason/Comments: headache Do you want consulting provider notified?: Yes 12/17/23 11:05 Consult Physician Routine Consulting Provider: Rd Muñoz Consult Reason/Comments: Left shoulder pain, possible rotator cuff tear Do you want consulting provider notified?: Yes Primary care physician: Zina Call DO Hospital Course: Final Diagnosis Left neck and shoulder pain with radiculopathy secondary to grade 1 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 Mild pulmonary hypertension Hyponatremia Hypervolemic from CHF expected to improve with IV lasix Elevated ESR/CRP with concern for inflammatory arthritis vs. Vasculitis Constipation Hypertension currently normotensive Hx of hyperlipidemia BPH Gastroesophagel reflux disease History of GI bleed/ruptured esophageal ulcer in September of 2023 Hx of DVT Steroid induced hyperglycemia Discharge Disposition Patient is stable for discharge home. Had improvement in the erythema of his left hand/wrist and recommending to continue oral prednisone taper on discharge. Patient to follow up with his PCP to further discuss continuing on daily prednisone. Sodium restriction 2000 mg per day. Daily weights for heart failure can help track fluid retention. Notify provider if you have gained 2 to 3 lbs overnight or 7 lbs in a week. Continue on oral lasix 20 mg daily. Repeat blood work in 2 to 3 days to monitor kidney function and electrolytes. Recommending brain MRI without contrast to be done on an outpatient basis will need script and authorization from family provider or neurologist. This is to follow up on brain CT with concern for "PRES". -Posterior Reversible Encephalopathy Syndrome. Hospital Course This is an 83-year-old male presented to the hospital with concern for left upper extremity pain and weakness as well as a few weeks of fever malaise and weakness at home. history of stiff neck, shoulder pain and weakness. His family states he has been getting progressively weak over the past 2 weeks. Chest x-ray shows fluid volume overload consistent with mild to moderate CHF. Mild bilateral pleural effusions. Left shoulder x-ray reveals no acute osseous pathology. Possible rotator cuff tear. Moderate shoulder osteoarthrosis. X- ray of the cervical neck revealed no fracture or dislocation. There is moderate degenerative disc disease. 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 There is concern for erythema and swelling of the third MCP joint of the left hand as well as swelling and erythema of the left wrist however her family states that this is chronic in nature and patient has been maintained on oral prednisone outpatient for this for a long time. He was recently taken off the prednisone and it seemed to swelling and redness have returned in his left hand. Patient's ESR and CRP have been elevated. Procalciton level was 0.11. He is not receiving antibiotics. His DARNELL rheumatoid factor are negative. He is negative for influenza RSV and Covid. Patient's sodium level was down to 129 there was concern for possibly acute CHF as his chest x-ray shows bilateral pleural effusions and echocardiogram done shows normal LV function with no small pericardial effusion. A proBNP level was found to be 313. Patient was evaluated by pulmonary cardiology and orthopedics. He was given steroids for the redness and hand swelling. He had significant improvement overnight. He was also given IV diuretics. Blood pressure medications were adjusted. He has been weaned to room air. He is now awake alert oriented x 3 and has been up ambulating without difficulty. His weakness and also the pain to his neck and shoulder has significantly improved. Cultures are negative. Sodium level is now 135 and normal renal function. Vitals stable cleared for discharge. Please see medication reconciliation for a list of current medications. Thank you for allowing us to participate in the care of this patient. The impression and plan of care has been dictated by Azul Crawford, Nurse Practitioner as directed. Dr. Oscar MD I have performed a history and physical examination and medical decision making of this patient, discussed the same with the dictator, and agree with the dictators assessment and plan as written, documented as a scribe. Based on total visit time, I have performed more than 50% of this visit. Patient Condition at Discharge: Stable Plan - Discharge Summary Discharge Rx Participant: No New Discharge Prescriptions: New Docusate [Colace] 100 mg PO DAILY #20 cap Furosemide [Lasix] 20 mg PO DAILY #30 tab predniSONE 0 mg PO DIRECTED 13 Days #34 tab Thiamine [Vitamin B-1] 100 mg PO BID-W/MEALS #60 tab Cyclobenzaprine [Flexeril] 5 mg PO BID #10 tab Folic Acid 1 mg PO DAILY@1200 #30 tab Psyllium Husk 100% [Metamucil Packet] 6 gm PO DAILY packet Multivitamins, Thera [Multivitamin (formulary)] 1 each PO DAILY@1200 #30 tab Losartan [Cozaar] 25 mg PO DAILY #30 tab Continue Tamsulosin [Flomax] 0.4 mg PO BID Atorvastatin [Lipitor] 20 mg PO DAILY Ferrous Sulfate [Iron (65 MG Elemental)] 325 mg PO HS Omeprazole 20 mg PO DAILY Finasteride [Proscar] 5 mg PO DAILY Ascorbic Acid [Vitamin C] 500 mg PO HS Discontinued Olmesartan/Hydrochlorothiazide [Olmesartan-Hctz 20-12.5 mg Tab] 1 tab PO DAILY Discharge Medication List Tamsulosin [Flomax] 0.4 mg PO BID 10/09/21 [History] Atorvastatin [Lipitor] 20 mg PO DAILY 07/14/23 [History] Finasteride [Proscar] 5 mg PO DAILY 07/14/23 [History] Ascorbic Acid [Vitamin C] 500 mg PO HS 12/15/23 [History] Ferrous Sulfate [Iron (65 MG Elemental)] 325 mg PO HS 12/15/23 [History] Omeprazole 20 mg PO DAILY 12/15/23 [History] Cyclobenzaprine [Flexeril] 5 mg PO BID #10 tab 12/19/23 [Rx] Docusate [Colace] 100 mg PO DAILY #20 cap 12/19/23 [Rx] Folic Acid 1 mg PO DAILY@1200 #30 tab 12/19/23 [Rx] Furosemide [Lasix] 20 mg PO DAILY #30 tab 12/19/23 [Rx] Losartan [Cozaar] 25 mg PO DAILY #30 tab 12/19/23 [Rx] Multivitamins, Thera [Multivitamin (formulary)] 1 each PO DAILY@1200 #30 tab 12/19/23 [Rx] Psyllium Husk 100% [Metamucil Packet] 6 gm PO DAILY packet 12/19/23 [Rx] Thiamine [Vitamin B-1] 100 mg PO BID-W/MEALS #60 tab 12/19/23 [Rx] predniSONE 0 mg PO DIRECTED 13 Days #34 tab 12/19/23 [Rx] Follow up Appointment(s)/Referral(s): Zina Call DO [Primary Care Provider] - 1-2 days (PLease make follow up appointment.) Bassam Montoya DO [REFERRING] - 1-2 Days Sage Carty DO [Doctor of Osteopathic Medicine] - 1 Week (The office is [facility] please call friday and make follow up appointment.) Manjeet Treviño DO [STAFF PHYSICIAN] - 1 Week (Neurology, Please call and establish care at this office have your insurance card ready may require a pre auth if that is the case get pre auth from primary doctor.) Ambulatory/Diagnostic Orders: Basic Metabolic Panel [LAB.AMB] Time Frame: 3 Days, Location: None Selected Patient Instructions/Handouts: Furosemide (By mouth), Prednisone (By mouth), Cyclobenzaprine (By mouth), Thiamine (By mouth), Folic Acid (By mouth), Laxative, Stool Softeners (By mouth), Multivitamins, Adult Formula (By mouth), Losartan (By mouth), Heart Failure (DC), Urinary Retention in Men (GEN), Greene Catheter Placement and Care (DC), Low-Sodium Diet (DC) Activity/Diet/Wound Care/Special Instructions: Sodium restriction 2000 mg per day Daily weights for heart failure can help track fluid retention. Notify provider if you have gained 2 to 3 lbs overnight or 7 lbs in a week. Continue on oral lasix 20 mg daily. Repeat blood work in 2 to 3 days to monitor kidney function and electrolytes. Continue prednisone taper as directed 40 mg daily for 4 days, 30 mg daily for 3 days, 20 mg daily for 3 days, 10 mg daily for 3 days. Discuss daily prednisone with your family doctor on follow up. Recommending brain MRI without contrast to be done on an outpatient basis will need script and authorization from family provider or neurologist. This is to follow up on brain CT with concern for "PRES". -Posterior Reversible Encephalopathy Syndrome Discharge Disposition: HOME SELF-CARE
== END 2023-12-19 18:04 | disposition home or self-care (01) | DRG 291 ==
LOC: EC 13:15 → 5NMEDONC 20:30
PROVIDERS: ADMIT Internal Medicine; ATTEND Internal Medicine
DX: I11.0 Hypertensive heart disease with heart failure (principal); I50.33 Acute on chronic diastolic (congestive) heart failure; J18.9 Pneumonia, unspecified organism; J96.01 Acute respiratory failure with hypoxia; I31.39 Other pericardial effusion (noninflammatory); E87.1 Hypo-osmolality and hyponatremia; I27.22 Pulmonary hypertension due to left heart disease; I27.20 Pulmonary hypertension, unspecified; M06.9 Rheumatoid arthritis, unspecified; T38.0X5A Adverse effect of glucocorticoids and synthetic analogues, initial encounter; R73.9 Hyperglycemia, unspecified; K21.9 Gastro-esophageal reflux disease without esophagitis; E78.5 Hyperlipidemia, unspecified; M19.012 Primary osteoarthritis, left shoulder; M48.02 Spinal stenosis, cervical region; M43.12 Spondylolisthesis, cervical region; M50.30 Other cervical disc degeneration, unspecified cervical region; N40.0 Benign prostatic hyperplasia without lower urinary tract symptoms; M50.11 Cervical disc disorder with radiculopathy, high cervical region; M75.102 Unspecified rotator cuff tear or rupture of left shoulder, not specified as traumatic; R51.9 Headache, unspecified; G89.29 Other chronic pain; M47.812 Spondylosis without myelopathy or radiculopathy, cervical region; M79.18 Myalgia, other site; M25.432 Effusion, left wrist; Z96.653 Presence of artificial knee joint, bilateral; Z79.52 Long term (current) use of systemic steroids; Z86.718 Personal history of other venous thrombosis and embolism; Z79.899 Other long term (current) drug therapy; Z85.46 Personal history of malignant neoplasm of prostate; Z87.11 Personal history of peptic ulcer disease; Z92.3 Personal history of irradiation; Z11.52 Encounter for screening for COVID-19; Z87.19 Personal history of other diseases of the digestive system
CPT/HCPCS: 36415; 70450; 71045; 71046; 71275; 72050; 72125; 72141; 74177; 80048; 80053; 80074; 81001; 81003; 82607; 82746; 83605; 83690; 83735; 83880; 84145; 84443; 84484; 85025; 85379; 85610; 85652; 85730; 86038; 86140; 86147; 86160; 86162; 86225; 86235; 86255; 86431; 87040; 87086; 87636; 93005; 93306; 94640; 94760; 96365; 96366; 96367; 96375; 96376; 99285